=== PATIENT | female | born 1950 | race Caucasian/White ===

== ENCOUNTER 2023-06-26 16:57 | Emergency (ER) | payer OTHER ==
--- OUTSIDE RECORDS SUMMARY | 2023-06-26 17:03 | XMS REPORT | Continuity of Care Document ---
:1950 Author Organization [facility] t Address [address] [place] [address] [address] [place] [address] Care Team Providers Name Role Phone Anson Jang Attending Clinician Unavailable Nilo Lemus Attending Clinician YANDEL YUEN Attending Clinician Unavailable Yandel Yuen Attending Clinician Jarrod Delaney Attending Clinician LITA MULLIGAN Attending Clinician Unavailable Lita Mulligan Attending Clinician Randall Barth Attending Clinician @[id number] Admitting Clinician Unavailable YANDEL YUEN Admitting Clinician Unavailable Yandel Yuen Admitting Clinician Jarrod Delaney Admitting Clinician Randall Barth Admitting Clinician Problems Condition Condition Condition Status Onset Resolution Last Treating Co mments Source Name Details Category Date Date Treatment Clinician Date DR REF- DR REF- Diagnosis Active 2021-12-28 [facility] KIDNEY KIDNEY 11-26 21:44:00 l FAILURE FAILURE 00:00: Alfredo Active 11/26/2021 [facility] [place] FINESSE-BREAST FINESSE-BREAST Diagnosis Active 2020-112021-10-06 [facility] CANCER CANCER 12-03 09:10:00 l Active 00:00: Alfredo 10/03/2021 00 [facility] [place] ANOREXIA, ANOREXIA, Diagnosis Active 2017-01-23 Memoria GENERALIZE GENERALIZE 01-10 22:07:00 l D D 00:00: Alfredo WEAKNESS, WEAKNESS, 00 METASTAT METASTAT Active 01/10/2017 [facility] [place] NOT EATING NOT Diagnosis Active 2017-01-10 Memoria EATING 01-10 14:21:00 l Active 00:00: Alfredo 01/10/2017 00 [facility] [place] MALIGNANT Diagnosis Active 2015-07-09 Memoria NEOPLASM MALIGNANT 07-06 08:59:00 l BREAST/TEJ NEOPLASM 00:00: Herm marlon GE GUIDED BREAST/TEJ 00 B GE GUIDED B Active 07/06/2015 [facility] [place] 174.9 174.9 Diagnosis Active 2015-06-21 Mem oria BREAST BREAST 06-17 10:29:00 l CANCER, CANCER, 00:00: Riva FEMALE FEMALE 00 Active 06/17/2015 [facility] Altered Problem 2019-04-25 Al moria mental mental 11:07:48 l status, status, Riva unspecifie unspecifie d d 04/25/2019 [facility] 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, nervous unspecifie system, d unspecifie d 04/25/2019 [facility] 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 Herm marlon 04/25/2019 [facility] 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 Herm marlon 04/25/2019 [facility] 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 04/25/2019 [facility] Anemia due Anemia Problem 2019-04-25 Memoria to due to 11:07:48 l antineopla antineopla He rmann stic stic chemothera chemothera py py 04/25/2019 [facility] Malignant Problem Resolve 2022-01-28 M emoria tumor of Malignant d 01:12:31 l breast tumor of Alfredo (disorder) breast (disorder) Resolved Problem 01/28/2022 [facility] [place] Malignant Problem Resolve 2022-01-28 M emoria neoplasm Malignant d 01:12:31 l of bone neoplasm Alfredo (disorder) of bone (disorder) Resolved Problem 01/28/2022 [facility] [place] Hearing Hearing Problem Active 2022-01-28 M emoria loss loss 01:12:31 l (finding) (finding) Herm marlon Active Problem 01/28/2022 [facility] [place] ACUTE ACUTE Diagnosis Active 2021-12-28 Mem oria KIDNEY KIDNEY 21:44:00 l FAILURE, FAILURE, Humberto n UNSPECIFIE UNSPECIFIE D D Active [facility] [place] DEHYDRATIO DEHYDRATI Diagnosis Active 2021-12-28 Memoria N ON Active 21:44:00 l [facility] ANOREXIA ANOREXIA Diagnosis Active 2017-01-23 Memoria Active 22:07:00 l [facility] WEAKNESS WEAKNESS Diagnosis Active 2017-01-23 Memoria Active 22:07:00 l [facility] MALIGNANT MALIGNANT Diagnosis Active 2017-01-23 Memoria NEOPLASM NEOPLASM 22:07:00 l OF UNSP OF UNSP Riva SITE OF SITE OF UNSPE UNSPE Active [facility] [place] History of Past Illness Condition Condition Condition Status Onset Resolution Last Treating Co mments Source Name Details Category Date Date Treatment Clinician Date Malignant Malignant Problem 2017-2019-04-25 2019-04-25 Memoria neoplasm neoplasm 2- 11:07:48 11:07:48 l of of 05:29: Alfredo lower-oute lower-oute 01 r quadrant r quadrant of left of left female female breast breast 10/10/2018 04/25/2019 [facility] Allergies, Adverse Reactions, Alerts Allergy Allergy Status Severity Reaction(s) Onset Inactive Treating Comm ents Source Name Type Date Date Clinician ciproflo ciproflo Active Griseldaori a xacin xacin zohreh Fuentes NKFA NKFA Active Memoria l Alfredo No Known No Known Active Memori a Medicati Medicati l on on Alfredo Allergnoam Carney s s Social History Smoking Status Start Date Stop Date Source Social History 2021-10-04 18:59:56 2021-10-04 18:59:56 [facility] Medications Ordered Filled Start Stop Current Ordering Indication Dosage Frequency Signature Comments Components Source Medication Medication Date Date Medication? Clinician (SIG) Name Name Sodium No 250 mL, Memoria Chloride 12-03 Rate: To l 0.9% 14:31: prime line Alfredo (titrate) 00 and flush 250 mL remaining blood products., Dosing Weight 50.7, kg, Route: IV, Total Volume: 250, Start Date: 12/03/21 8:31:00 [employer] DEVELOPER, Duration: 1 day, Stop date: 12/04/21 8:30:00 [employer]ER DEVELOPER, Replace Every: 24 hr, 0 potassium No Notes: Memori a chloride 20 12-03 (Same as: l mEq oral 12:43: K-Dur 20) Herm marlon tablet, 00 "Do Not extended Crush" release Give with (KCL) food and full glass of water For patients unable to swallow tablet, dissolve in one half glass of water. Allow about 2 minutes for the tablets to disintegra te. Stir before giving to prepare slurry and administer . Please exclude Patient s with feeding tube less than 14 Tongan (Dobhoff, J-tube etc) and pediatric and patients. Sodium No 250 mL, Memoria Chloride 12-03 Rate: To l 0.9% 11:47: prime line Riva (titrate) 00 and flush 250 mL remaining blood products., Dosing Weight 50.7, kg, Route: IV, Total Volume: 250, Start Date: 12/03/21 5:47:00 [employer]ER DEVELOPER, Duration: 1 day, Stop date: 12/04/21 5:46:00 [employer] SERVER DEVELOPER, Replace Every: 24 hr, 0 Procrit No Notes: Memoria 12-02 (Same as: l 23:00: Retacrit) Riva epoetin tanya-epbx 72991 unit/1 ml VL. WASTE: F/P - Red; E Red MEDICATION WASTE Product Size: 35046 unit Product Wasted: ___ unit Lovenox No Notes: Memoria 12-02 (Same as: l 19:00: Lovenox) Alfredo Magnesium No Notes: Memori a Sulfate 12-02 WASTE: F/P l 15:28: - Sink; E Riva - Municipal Trash Bin Potassium No Notes: Memori a Chloride 12-01 MUST be l 14:00: Diluted Alfredo 00 before use (Same as: KCl) MEDICATION WASTE Product Size: 40 mEq Product Wasted: ___ mEq Potassium No Notes: Memori a Chloride 12-01 Infuse at l 12:00: a rate of 10 mEq/hr. (Same as: KCL) Calcium No Notes: Memoria Gluconate 12-01 WASTE: F/P l 11:46: - Sink; E - Municipal Trash Bin Potassium No 40 mEq, 2 Mem oria Chloride 11-30 tab, l 14:26: Route: PO, Drug form: ERTAB, ONCE, Dosing Weight 50.7, kg, Start date: 11/30/21 8:26:00 [employer] DEVELOPER, Stop date: 11/30/21 8:26:00 [employer] SERVER DEVELOPER, 0 Lactated No 1,000 mL, Art pro Ringers IV 11-30 Rate: 75 l 1,000 mL 14:11: ml/hr, Infuse over: 13.3 hr, Route: IV, Dosing Weight 50.7 kg, Total Volume: 1,000, Start date: 11/30/21 8:11:00 [employer]ER DEVELOPER, Duration: 30 day, Stop date: 12/30/21 8:10:00 [employer] SERVER DEVELOPER, BSA: 1.51 m2, 0 oxybutynin No Notes: Memor ia 1-25 Same as: l 19:49: Ditropan) BD Normal No Notes: Memori a Saline 1-25 (Same as: l Flush 15:01: BD Posiflush) Sodium No 25 mL, Memoria Chloride 11-29 Route: IV, l 0.9% IV 15:01: Start date: 11/29/21 9:01:00 [employer]ER DEVELOPER, Duration: 30 day, Stop date: 12/29/21 9:00:00 [employer] SERVER DEVELOPER, PRN Line Flush, 0 Calcium No Notes: Memoria Gluconate 11-29 WASTE: F/P l 14:49: - Sink; E - Municipal Trash Bin Lasix No Notes: Memoria 1-24 (Same as: l 22:42: Lasix) MEDICATION WASTE Product Size: 40 mg Product Wasted: ___ mg sodium No 1,000 mL, Memori a bicarbonate 11-28 Rate: 100 l 8.4% 100 16:58: ml/hr, Alfredo mEq + D5W 00 Infuse 1,000 mL over: 11 hr, Route: IV, Dosing Weight 50.7 kg, Total Volume: 1,100, Start date: 11/28/21 10:58:00 [employer]ER DEVELOPER, Duration: 30 day, Stop date: 12/28/21 10:57:00 [employer] SERVER DEVELOPER, BSA: 1.51 m2, 0 Thiamine No Notes: Memoria 11-28 (Same As: l 15:00: Vitamin B1) multivitami No Notes: Art pro n with 11-28 (Same l minerals 15:00: as:Thera-M Her delong 00 , Theragran- M) WASTE: F/P - Black; E - Municipal Trash Bin Give with food. Sodium No 15 mL, Memoria Chloride 11-28 Route: IV, l 0.9% IV 00:00: Start Riva 00 date: 11/27/21 18:00:00 [employer]ER DEVELOPER, Duration: 30 day, Stop date: 12/27/21 17:59:00 [employer]ER DEVELOPER, 0 Rasburicase No Notes: Art pro 11-27 Restricted l 21:38: Medication 00 : All ADULT doses of rasburicas e should be interchang ed to rasburicas e 3 mg IV x1 dose. All PEDIATRIC doses of rasburicas e should be interchang ed to 0.2 mg/kg/dose IV x1 dose (max 3 mg). A second dose may be given after 24 hours for patients unresponsi ve to 1 dose. (Same as:Elitek) MEDICATION WASTE Product Size: 1.5 mg Product Wasted: ___ mg Lasix No Notes: Memoria 11-27 (Same as: l 21:38: Lasix) MEDICATION WASTE Product Size: 40 mg Product Wasted: ___ mg Heparin 80 No Route: Memor ia unit/kg 1-23 IVP, PRN, l Bolus 17:48: 4,200 Riva (Heparin 00 unit, 4.2 Dosing mL, Drug Weight) form: INJ, PRN Heparin Protocol, Start date: 11/27/21 11:48:00 [employer]ER DEVELOPER, Stop date: 12/27/21 11:47:00 [employer] SERVER DEVELOPER, 30 day, 0 Heparin 40 No Route: Memor ia unit/kg 11-27 IVP, PRN, l Bolus 17:48: 2,100 Alfredo (Heparin 00 unit, 2.1 Dosing mL, Drug Weight) form: INJ, PRN Heparin Protocol, Start date: 11/27/21 11:48:00 [employer] SERVER DEVELOPER, Stop date: 12/27/21 11:47:00 [employer] SERVER DEVELOPER, 30 day, 0 heparin No Notes: Memoria additive - Total l 25,000 unit 17:48: Concentrat Riva [18 00 ion = 50 unit/kg/hr] unit/ ml + Premix Total Diluent volume = Sodium 500 ml Chloride Send Med 0.45% 500 Request 2 mL hours prior to next bag Calcium No Notes: Memoria Carbonate 11-27 (Same As: l 1250 MG / 15:00: Teodoro-D, Herm marlon Cholecalcif 00 OsCal-D, robby 200 Oyster UNT Oral Calcium) Tablet Ceftriaxone No Notes: Art pro 11-27 (Same As: l 14:06: Rocephin). Use with 100 mL NS and infuse over 30 min MEDICATION WASTE Product Size: 1000 mg Product Wasted: ___ mg Fluconazole No Notes: Art pro 11-27 (Same as: l 14:06: Diflucan) Hazardous Drug Group 3:Reproduc tive risk Hazardous Drug -- Refer to safe handling procedure PPE Matrix calcium-vit Yes 1 tab, PO, Memoria saba D 600 1-23 Daily, 0 l mg-125 07:48: Refill(s) Humberto n units oral 00 tablet Granisetron Yes 1 mg, up Me moria 1-23 to 1 hour l 07:46: before Riva 00 chemothera py, 0 Refill(s) eribulin Yes IV, qWeek, Mem oria 1-23 0 l 07:44: Refill(s) Zarxio Yes = 0.5 mL, Memori a 11-27 SUB-Q, l 07:41: Daily, administer ed after chemo, 0 Refill(s) pegfilgrast No SUB-Q, Art pro im 11-27 ONCE, X 7 l 07:39: day, 0 Refill(s) influenza No Notes: Memori a virus 11-27 (Same as: l vaccine, 07:37: Fluzone Humberto n inactivated 28 High-Dose high-dose Quad) For preservativ 65 years e-free of age of intramuscul older (0.7 ar ml IM) suspension Shake well before use Dextrose No 12.5 gm, Memor ia 50% Syringe 11-26 25 mL, l (D50W) 22:23: Route: IVP, Drug Form: INJ, Dosing Weight 43.182, kg, PRN, PRN Blood Glucose Results, Start date: 11/26/21 16:23:00 [employer] SERVER DEVELOPER, Duration: 30 day, Stop date: 12/26/21 16:22:00 [employer] SERVER DEVELOPER, 0 Glucagon No 1 mg, Memoria 11-26 Route: IM, l 22:23: Drug form: PDR/INJ, PRN, Dosing Weight 43.182, kg, PRN Blood Glucose Results, Start date: 11/26/21 16:23:00 [employer] SERVER DEVELOPER, Duration: 30 day, Stop date: 12/26/21 16:22:00 [employer] SERVER DEVELOPER, 0 Ondansetron No Notes: Art pro 11-26 (Same as: l 22:23: Zofran) MEDICATION WASTE Product Size: 4 mg Product Wasted: ___ mg Acetaminoph No Notes: Do Manuelito emoria en 11-26 not exceed l 22:23: 4 gm/day. (Same as: Tylenol) normal No 1,000 mL, Memori a saline 0.9% 11-26 Rate: 150 l IV 1,000 mL 20:24: ml/hr, Herm marlon 00 Infuse over: 6.7 hr, Route: IV, Dosing Weight 43.182 kg, Total Volume: 1,000, Start date: 11/26/21 14:24:00 [employer] SERVER DEVELOPER, Duration: 30 day, Stop date: 12/26/21 14:23:00 [employer] SERVER DEVELOPER, BSA: 1.4 m2, 0 Ciprofloxac No 500 mg = 1 Memoria in 500 MG 1-14 tab, PO, l Oral Tablet 19:00: Q12H, # 20 Alfredo [Cipro] 00 tab, 0 Refill(s) capecitabin 2020-11 Yes 1,000 Memor ia e 500 MG 1-30 MG/M2, PO, l Oral Tablet 19:06: BID, 0 Herm marlon 00 Refill(s) non-formula 2020-11 Yes CALCIUM, Me moria ry 1-30 PO, Daily, l 19:05: Refill(s) Alfredo 00 0 rivaroxaban 2020-11 Yes 15 mg = 1 M emoria 15 MG Oral 1-30 tab, PO, l Tablet 19:04: BID, 0 Riva [Xarelto] 00 Refill(s) Vitamin B6 2020-11 Yes PO, Daily, M emoria 1-30 0 l 19:03: Refill(s) Riva 00 Folic Acid Yes 1 mg = 1 Mem oria 1 MG Oral 3-16 tab, PO, l Tablet 19:07: Daily, # Riva 00 30 tab, 3 Refill(s) dronabinol Yes 2.5 mg = 1 M emoria 2.5 mg oral 3-16 cap, PO, l capsule 19:07: BID, X 30 Ofe nn 00 day, # 60 cap, 3 Refill(s) Lidocaine Yes 1 patch, Art pro Hydrochlori 3-16 TOP, l de 0.05 19:07: Daily, Riva MG/MG 00 Remove Transdermal after 12 Patch hours, # [Lidoderm] 30 patch, 0 Refill(s) Hydrocodone Yes 1 tab, PO, Memoria Bitartrate 3-16 Q4H, PRN l 7.5 MG / 19:07: Pain Score Her delong Ibuprofen 00 6-10, X 30 200 MG Oral day, # 90 Tablet tab, 0 [Vicoprofen Refill(s) ] remove No 1 patch, Memoria patch 3-16 Route: l 03:00: TOP, Riva 00 Bedtime, Drug form: ERFILM, Start date: 01/17/17 22:00:00 CDT, Duration: 30 day, Stop date: 02/16/17 21:00:00 CDT Protonix No Notes: Memoria 3-15 Same as: l 21:30: Protonix Riva 00 Mix in 5 mL apple juice or applesauce for oral & 10mL apple juice for NG tube Diclofenac No Notes: Memor ia Sodium 0.01 3-15 Same as: l MG/MG 18:00: Voltaren Riva Topical Gel 00 Gel Non-Formul regino Item Hydrocodone No Notes: Art pro Bitartrate 3-15 (Same as: l 7.5 MG / 15:43: Vicoprofen Her delong Ibuprofen 00 ) 200 MG Oral Tablet [Vicoprofen ] Lidocaine No Notes: Memori a Hydrochlori 3-15 Apply only l de 0.05 15:43: once for Humberto n MG/MG 00 up to 12 Transdermal hours in a Patch 24-hour [Lidoderm] period (12 hours on and 12 hours off). (Same as: Lidoderm) "Remove old patch before applicatio n of new patch" tramadol No Notes: Not Mem oria hydrochlori 3-15 to exceed l de 50 MG 03:25: 400mg/day. Her delong Oral Tablet 00 (Same As: Ultram) Magnesium No Notes: Memori a Sulfate 3-13 WASTE: F/P l 23:00: - Sink; E Alfredo - Municipal Trash Bin Potassium No Notes: Memori a Chloride 3-13 (Same as: l 1.33 MEQ/ML 22:28: Potassium H ermann Oral 00 Chloride) Solution Thiamine No Notes: Memoria 3-13 (Same As: l 22:28: Vitamin Riva 00 B1) Bisacodyl No Notes: Memori a 3-13 (Same As: l 22:22: Dulcolax, Alfredo 00 Bisco-Lax) Sodium No 500 mL, Memoria Chloride 3-12 500 ml/hr, l 0.154 07:21: Infuse Riva MEQ/ML 00 Over: 1 Injectable hr, Route: Solution IV, 500, Drug form: INJ, ONCE, Priority: STAT, Dosing Weight 54.545 kg, Start date: 01/14/17 1:21:00 [employer] SERVER DEVELOPER, Duration: 1 doses or times, Stop date: 01/14/17 1:21:00 [employer] SERVER DEVELOPER tramadol No Notes: Not Mem oria hydrochlori 3-12 to exceed l de 50 MG 04:03: 400mg/day. Her delong Oral Tablet 00 (Same As: [Ultram] Ultram) Ondansetron No Notes: Art pro 3-11 (Same as: l 19:42: Zofran) Alfredo MEDICATION WASTE Product Size: 4 mg Product Wasted: ___ mg Naloxone No Notes: Memoria 3-11 Same as l 19:42: Narcan Riva Flumazenil No Notes: Memor ia 3-11 (Same as: l 19:42: Romazicon) Alfredo Miralax No Notes: Memoria 3-11 Dissolve l 15:00: in 8 oz of Alfredo 00 water or juice. (Same as: Miralax) ketOROLAC No 4 days Memor ia 15 mg/mL 3-10 l injectable 23:17: MEDICATION H ermann solution 00 WASTE Product Size: 30 mg Product Wasted: ___ mg senna 8.6 No Notes: Memori a mg oral 3-10 (Same as: l tablet 15:00: Senokot) Alfredo Lovenox No Notes: Memoria 3-10 (Same as: l 03:00: Lovenox) Alfredo Docusate No 50 mg, 1 Memor ia Sodium 50 3-10 cap, l MG Oral 03:00: Route: PO, Herm marlon Capsule 00 Drug form: [Colace] CAP, Bedtime, Dosing Weight 54.545, kg, Start date: 01/11/17 21:00:00 [employer] SERVER DEVELOPER, Duration: 30 day, Stop date: 02/09/17 21:00:00 CDT Ofirmev 2017-0 No 650 mg, Memoria 3-10 Route: IV, l 00:00: Q6H, Alfredo 00 Dosing Weight 54.545, kg, Start date: 01/11/17 18:00:00 [employer] SERVER DEVELOPER, Duration: 30 day, Stop date: 02/10/17 12:00:00 CDT Thiamine No Notes: Memoria - (Same As: l 23:00: Vitamin Riva 00 B1) multivitami No Notes: Art pro n with 01-11 (Same l minerals 23:00: as:Thera-M Her delong 00 , Theragran- M) WASTE: F/P - Black; E - Municipal Trash Bin Give with food. Tetrahydroc No Notes: Art pro annabinol 01-11 (Same as: l 23:00: Marinol) Non-Formul regino Drug. Ofirmev No Notes: Memoria 01-11 Infuse l 22:38: over 15 minutes Do not exceed 4gm/day of acetaminop hen MEDICATION WASTE Product Size: 1000 mg Product Wasted: ___ mg Folic Acid No Notes: Memor ia 01-11 (Same as: l 22:00: Folvite) BD Normal No Notes: Memori a Saline 01-11 (Same as: l Flush 21:26: BD Riva 00 Posiflush) Sodium No 25 mL, Memoria Chloride 01-11 Route: IV, l 0.9% IV 21:26: Start Riva 00 date: 01/11/17 15:26:00 [employer] SERVER DEVELOPER, Duration: 30 day, Stop date: 02/10/17 16:25:00 CDT, PRN Line Flush Tylenol No Notes: Max Art pro 01-11 acetaminop l 04:14: hen = 4000mg/day (4 gm/day). (Same as: Tylenol) Docusate No Notes: Memoria 3 (Same as: l 20:39: Colace) (Do Not Crush) Ondansetron No Notes: Art pro - (Same as: l 20:39: Zofran) Riva 00 MEDICATION WASTE Product Size: 4 mg Product Wasted: ___ mg Calcium 2016-0 No 1,000 mL, Memor ia Chloride 3-08 1000 l 0.0014 19:43: ml/hr, Alfredo MEQ/ML / 00 Infuse Potassium Over: 1 Chloride hr, Route: 0.004 IV, 1,000, MEQ/ML / Drug form: Sodium INJ, ONCE, Chloride Priority: 0.103 STAT, MEQ/ML / Dosing Sodium Weight Lactate 54.545 kg, 0.028 Start MEQ/ML date: Injectable 01/10/17 Solution 13:43:00 [employer] SERVER DEVELOPER, Duration: 1 doses or times, Stop date: 01/10/17 13:43:00 [employer] SERVER DEVELOPER Lactated 2016-0 No 1,000 mL, Art pro Ringers -08 Rate: 40 l 1,000 mL 19:43: ml/hr, Alfredo 00 Infuse over: 25 hr, Route: IV, Dosing Weight 54.545 kg, Total Volume: 1,000, Priority: STAT, Start date: 01/10/17 13:43:00 [employer] SERVER DEVELOPER, Stop date: 02/09/17 13:42:00 CDT Saline 2016-0 No Notes: Memoria Flush 0.9% 308 (Same as: l 18:38: BD Alfredo 00 Posiflush) Vital Signs Vital Name Observation Time Observation Value Comments Source Systolic (mm Hg) 2022-01-25 13:21:00 Art rial Alfredo Diastolic (mm Hg) 2022-01-25 13:21:00 Mem orial Alfredo Height 2022-01-25 13:21:00 162.56 cm [facility] Riva Weight 2022-01-25 13:21:00 [facility] Riva BMI Calculated 2022-01-25 13:21:00 Memori al Riva Height 2022-01-25 13:11:00 162.56 cm [facility] Alfredo Weight 2022-01-25 13:11:00 [facility] Riva BMI Calculated 2022-01-25 13:11:00 Memori al Riva Height 2022-01-05 14:18:00 162.56 cm [facility] Riva Weight 2022-01-05 14:18:00 [facility] Riva BMI Calculated 2022-01-05 14:18:00 Memori al Riva Heart Rate 2021-12-04 18:40:38 [facility] Riva Respitory Rate 2021-12-04 18:40:38 Memori al Alfredo Systolic (mm Hg) 2021-12-04 18:40:15 Art rial Alfredo Diastolic (mm Hg) 2021-12-04 18:40:15 Mem orial Alfredo Heart Rate 2021-12-04 18:40:15 [facility] Riva Temperature Oral (F) 2021-12-04 18:40:14 98.1 F [facility] Alfredo Heart Rate 2021-12-04 13:44:33 [facility] Riva Temperature Oral (F) 2021-12-04 13:44:22 97.5 F [facility] Alfredo Systolic (mm Hg) 2021-12-04 13:44:21 Art rial Riva Diastolic (mm Hg) 2021-12-04 13:44:21 Mem orial Riva Respitory Rate 2021-12-04 01:45:34 Memori al Riva Systolic (mm Hg) 2021-12-04 01:45:10 Art rial Riva Diastolic (mm Hg) 2021-12-04 01:45:10 Mem orial Alrfedo Temperature Oral (F) 2021-12-04 01:45:08 98 F [facility] Riva Respitory Rate 2021-12-03 21:28:51 Memori al Riva Heart Rate 2021-11-28 10:13:45 [facility] Riva Respitory Rate 2021-11-28 10:13:45 Memori al Alfredo Systolic (mm Hg) 2021-11-28 10:13:02 Art rial Alfredo Diastolic (mm Hg) 2021-11-28 10:13:02 Mem orial Riva Heart Rate 2021-11-28 10:13:02 [facility] Riva Temperature Oral (F) 2021-11-28 10:12:56 98.3 F [facility] Alfredo Heart Rate 2021-11-28 05:42:25 [facility] Alfredo Respitory Rate 2021-11-28 05:42:25 Memori al Alfredo Systolic (mm Hg) 2021-11-28 05:41:53 Art rial Alfredo Diastolic (mm Hg) 2021-11-28 05:41:53 Mem orial Riva Temperature Oral (F) 2021-11-28 05:41:15 98.5 F [facility] Riva Respitory Rate 2021-11-28 02:06:09 Memori al Riva Systolic (mm Hg) 2021-11-28 02:05:48 Art rial Alfredo Diastolic (mm Hg) 2021-11-28 02:05:48 Mem orial Alfredo Temperature Oral (F) 2021-11-28 02:05:31 97.8 F [facility] Riva Height 2021-11-27 00:46:00 160.02 cm [facility] Riva Weight 2021-11-27 00:46:00 [facility] Alfredo BMI Calculated 2021-11-27 00:46:00 Memori al Riva Height 2021-11-26 18:21:00 162.56 cm [facility] Riva BMI Calculated 2021-11-26 18:21:00 Memori al Riva Weight 2021-11-26 18:21:00 [facility] Alfredo Respitory Rate 2021-10-06 22:30:00 Memori al Riva Systolic (mm Hg) 2021-10-06 22:30:00 Art rial Alfredo Diastolic (mm Hg) 2021-10-06 22:30:00 Mem orial Riva Respitory Rate 2021-10-06 22:00:00 Memori al Riva Systolic (mm Hg) 2021-10-06 22:00:00 Art rial Riva Diastolic (mm Hg) 2021-10-06 22:00:00 Mem orial Alfredo Respitory Rate 2021-10-06 21:45:00 Memori al Riva Systolic (mm Hg) 2021-10-06 21:45:00 Art rial Alfredo Diastolic (mm Hg) 2021-10-06 21:45:00 Mem orial Riva Height 2021-10-04 13:47:00 162.56 cm [facility] Riva Weight 2021-10-04 13:47:00 [facility] Alfredo BMI Calculated 2021-10-04 13:47:00 Memori al Riva Heart Rate 2017-01-18 20:59:00 [facility] Alfredo Respitory Rate 2017-01-18 20:59:00 Memori al Riva Temperature Oral (F) 2017-01-18 20:59:00 98.6 F [facility] Riva Systolic (mm Hg) 2017-01-18 20:59:00 Art rial Alfredo Diastolic (mm Hg) 2017-01-18 20:59:00 Mem orial Alfredo Respitory Rate 2017-01-18 17:13:00 Memori al Alfredo Systolic (mm Hg) 2017-01-18 17:13:00 Art rial Riva Diastolic (mm Hg) 2017-01-18 17:13:00 Mem orial Riva Heart Rate 2017-01-18 17:13:00 [facility] Riva Temperature Oral (F) 2017-01-18 17:13:00 98.3 F [facility] Alfredo Heart Rate 2017-01-18 13:23:00 [facility] Alfredo Temperature Oral (F) 2017-01-18 13:23:00 97.8 F [facility] Riva Systolic (mm Hg) 2017-01-18 13:23:00 Art rial Riva Diastolic (mm Hg) 2017-01-18 13:23:00 Mem orial Riva Respitory Rate 2017-01-18 13:23:00 Memori al Alfredo BMI Calculated 2017-01-10 22:49:00 Memori al Riva Weight 2017-01-10 22:49:00 [facility] Alfredo Height 2017-01-10 22:49:00 162.56 cm [facility] Riva Weight 2017-01-10 18:37:00 [facility] Alfredo Height 2015-07-06 22:01:00 162.56 cm [facility] Alfredo BMI Calculated 2015-07-06 22:01:00 Memori al Alfredo Weight 2015-07-06 22:01:00 [facility] Riva Procedures Procedure Date / Time Performing Clinician Source Performed Cystourethroscopy (separate 2022-01-25 13:35:00 [facility] procedure) Bilateral maste[facility] rmann Colonoscopy [facility] section [facility] Humberto n Biopsy of vertebral body [facility] Encounters Start End Encounter Admission Attending Care Care Encounter Source Date/Time Date/Time Type Type Clinicians Facility Department ID 2022-01-25 2022-01-26 Outpatient nullFlavo [facility] [id number] Memoria 13:00:00 04:59:59 r Urology 02 l [facility] 2022-01-25 2022-01-26 Outpatient nullFlavo [facility] [id number] Memoria 13:00:00 04:59:59 r Urology 01 l [facility] 2022-01-25 2022-01-25 Outpatient Nilo Lemus [facility] [id number] 08:00:00 23:59:59 Ad 02 2022-01-25 2022-01-25 Outpatient Nilo Lemus [facility] [id number] 08:00:00 23:59:59 Ad 2022-01-25 2022-01-25 Outpatient ANNA CASTILLO [id number] Memoria 08:00:00 08:00:00 02 [facility] 2022-01-25 2022-01-25 Outpatient ANNA CASTILLO [id number] Memoria 08:00:00 08:00:00 01 [facility] 2022-01-05 2022-01-06 Outpatient nullRadhao [facility] [id number] Memoria 14:15:00 05:59:59 r Urology 00 l [facility] 2022-01-05 2022-01-05 Outpatient Nilo Lemus [facility] [id number] 08:15:00 23:59:59 Ad 2022-01-05 2022-01-05 Outpatient ANNA NOAM [id number] [facility]oria 08:15:00 08:15:00 00 [facility] 2021-11-26 2021-12-04 Inpatient nullFlavo [facility] [id number] Memoria 17:55:06 20:39:00 r [facility]iva 03 [facility] 2021-11-26 2021-12-04 Inpatient E ALPA, [facility] [id number] Memoria 15:07:00 14:39:00 [facility]ANDEL [facility] 2021-11-26 2021-12-04 Outpatient Alpa [facility] [id number] 11:55:06 14:39:00 Yandel Landry 2021-11-26 2021-11-26 Outpatient Elaina [facility] [id number] 11:55:06 11:55:06 Jarrod Rice 2021-10-06 2021-10-06 Bedded nullFlavo [facility] [id number] Memoria 15:08:00 23:00:00 Outpatient r Riva 02 l [facility] 2021-10-06 2021-10-06 Outpatient MULLIGAN, [facility] [id number] Memoria 09:08:00 17:00:00 [facility] 2021-10-06 2021-10-06 Outpatient Mulligan, [facility] [id number] 09:08:00 17:00:00 Lita Pelon 02 2021-10-06 2021-10-06 Outpatient Mulligan, [facility] [id number] 09:08:00 17:00:00 Lita Pelon 2018-10-05 2018-10-06 Outpt Diag nullFlavo [facility] [id number] Memoria 17:10:00 05:59:00 Services r Outpatient 02 [facility] 2018-10-05 2018-10-05 Outpatient Mulligan, 2.16.840. [id number]. 3 [id number] 11:10:00 23:59:00 Lita Pelon [id number] 3.615.30 5.30 2017-01-10 2017-01-18 Inpatient [facility] [id number] Memoria 18:36:00 22:35:00 r Alfredo 67 l [facility] 2017-01-10 2017-01-18 Outpatient Kunalpara, [facility] [id number] 12:36:00 17:35:00 Randall N 67 2015-07-09 2015-07-09 Bedded [facility] [id number] Memoria 13:20:00 18:28:00 Outpatient r Alfredo 01 l [facility] 2015-07-09 2015-07-09 Outpatient Mulligan, [facility] [id number] 08:20:00 13:28:00 Lita Pelon 2015-06-28 2015-06-29 Outpt Diag nullFlavo [facility] [id number] Memoria 17:55:00 04:59:00 Services r Outpatient 01 [facility] 2015-06-28 2015-06-28 Outpatient Mulligan, 2.16.840. [id number]. [id number] 12:55:00 23:59:00 Lita Pelon [id number] 3.615.30 5.30 2015-06-25 2015-06-26 Outpt Diag Ashish [facility] [id number] Memoria 14:47:00 04:59:00 Services r Outpatient 00 l [facility] 2015-06-25 2015-06-25 Outpatient Rosy 2.16.840. [id number]. [id number] 09:47:00 23:59:00 Lita Pelon [id number] 3.615.30 5.30 2015-06-21 2015-06-22 Outpatient [facility] [id number] Memoria 15:11:00 04:59:00 r Riva 00 l [facility] 2015-06-21 2015-06-21 Outpatient Mulligan [facility] [id number] 10:11:00 23:59:00 Lita Pelon 00 Results Test Description Test Time Test Comments Results Result [facility] e Comments MRI BRAIN WO/W 2023-02-24 08:08:41 ADRI Raya MEDICAL IMAGINGName: MELLO FUENTES : 1950 Sex: M CLINI ROMERO INDICATION: C50.512 Malignant neoplasm of lower-outer quadrant of left female breast C79.51 Secondary malignant neoplasm of boneMODALITY: Progressive [employer] 3T MRITECHNIQUE: Multiplanar SE, FSE and inversion recovery pulse sequences of the brain were performed without contrast enhancement. Diffusion weighted imaging was utilized. IV contrast, 10 ml gadolinium contrast are injected IV and post-contrast T1 axial and coronal images obtained.IMPRESSION:1. Nonspecific mild to moderate generalized ventricular sulcal and cisternal dilation noted2. No evidence of metastatic diseaseFINDINGS:COMPAR ANEESH: noneThere are no significant intracranial white matter lesions.There are no acute infarcts or hemorrhages. There is no acute restriction on diffusion sequences.There are no masses in the brain or extra axial spaces. There is no hydrocephalus.Mild to moderate generalized ventricular sulcal and cisternal dilation noted. This is likely secondary to involutional changes.Sella and parasellar structures are normal. Central skull base is intact. The craniocervical junction is normal without mass or Chiari malformation.The brainstem, midbrain and cerebellum are normal. Bilateral internal auditory canals are normal and symmetric.Normal flow voids are seen intracranially in carotid and vertebrobasilar arteries. The dural venous sinuses are patent.Small amounts of nonspecific T2 hyperintensity bilateral mastoid air cells likely representing nonspecific fluid/inflammatory change.Mild mucoperiosteal thickening ethmoid and sphenoid sinuses.The calvarium is intact.Extracranial soft tissues are unremarkable.No pathologic intracranial enhancement is observed. URINE AND STOOL 2022-01-25 13:13:00 Test Item Value Reference Range Interpretation Comme nts POC UA Color (test code = POC UA Color) Yellow *NA*(01/25/22 8:13 AM ) [facility] AND [id number] 13:13:00 Test Item Value Reference Range Interpretation Comments POC UA Turbidity (test Clear *NA*(01/25/22 code = POC UA Turbidity) 8:13 AM) [facility] AND [id number] 13:13:00 Test Item Value Reference Range Interpretation Comments POC UA SG (test code = POC UA SG) 1.020 1 [facility] AND [id number] 13:13:00 Test Item Value Reference Range Interpretation Comments POC UA pH (test code = POC UA pH) 6.5 1 5.0-8.0 [facility] AND [id number] 13:13:00 Test Item Value Reference Range Interpretation Comments POC UA Prot (test code = POC Negative mg/dL UA Prot) [facility] AND [id number] 13:13:00 Test Item Value Reference Range Interpretation Comments POC UA Glu (test code = POC UA Negative mg/dL Glu) [facility] AND [id number] 13:13:00 Test Item Value Reference Range Interpretation Comments POC UA Ket (test code = POC UA Negative mg/dL Ket) [facility] AND [id number] 13:13:00 Test Item Value Reference Range Interpretation Comments POC UA Bili (test Negative *NA*(01/25/22 code = POC UA Bili) 8:13 AM) [facility] AND [id number] 13:13:00 Test Item Value Reference Range Interpretation Comments POC UA Bld (test code Negative *NA*(01/25/22 = POC UA Bld) 8:13 AM) [facility] AND [id number] 13:13:00 Test Item Value Reference Range Interpretation Comments POC UA Uro (test code = POC UA Uro) 0.2 0.1-1.0 [facility] AND [id number] 13:13:00 Test Item Value Reference Range Interpretation Comments POC UA Nit (test code Negative *NA*(01/25/22 = POC UA Nit) 8:13 AM) [facility] AND [id number] 13:13:00 Test Item Value Reference Range Interpretation Comments POC UA LeukEst (test Negative *NA*(01/25/22 code = POC UA LeukEst) 8:13 AM) [facility] LAB [id number] 18:01:00 Test Item Value Reference Range Interpretation Comments Result 2 (Urine Culture) See Result Comment (test code = Result 2 (Urine Culture)) [facility] [id number] 13:01:00 Test Item Value Reference Range Interpretation Comments Magnesium Lvl (test code = Magnesium 1.6 1.8-2.4 Lvl) [facility]2022-01-30 13:01:00 Test Item Value Reference Range Interpretation Comments Glucose Lvl (test code = Glucose Lvl) 74 70-[address] [facility]2022-01-30 13:01:00 Test Item Value Reference Range Interpretation Comments BUN (test code = BUN) 21 - [facility]2022-01-30 13:01:00 Test Item Value Reference Range Interpretation Comments Creatinine Lvl (test code = Creatinine 3.19 0.50-1.40 Lvl) [facility]2022-01-30 13:01:00 Test Item Value Reference Range Interpretation Comments Sodium Lvl (test code = Sodium Lvl) 145 135-145 [place] 072972-01-30 13:01:00 Test Item Value Reference Range Interpretation Comments Potassium Lvl (test code = Potassium 3.3 3.5-5.1 Lvl) [place] 072972-01-30 13:01:00 Test Item Value Reference Range Interpretation Comments Chloride Lvl (test code = Chloride Lvl) 108 95-109 [place] 072972-01-30 13:01:00 Test Item Value Reference Range Interpretation Comments CO2 (test code = CO2) 26 24-32 [place] 072972-01-30 13:01:00 Test Item Value Reference Range Interpretation Comments Calcium Lvl (test code = Calcium Lvl) 7.5 8.5-10.5 [place] 072972-01-30 13:01:00 Test Item Value Reference Range Interpretation Comments AGAP (test code = AGAP) 14.3 10.0-20.[address] [facility]2022-01-30 13:01:00 Test Item Value Reference Range Interpretation Comments eGFR (test code = eGFR) 14 [id number] 13:01:00 Test Item Value Reference Range Interpretation Comments WBC (test code = WBC) 12.1 3.7-10.4 [id number] 13:01:00 Test Item Value Reference Range Interpretation Comments RBC (test code = RBC) 3.23 4.20-5.40 [id number] 13:01:00 Test Item Value Reference Range Interpretation Comments Hgb (test code = Hgb) 9.7 12.0-16.0 [place] 885142-01-30 13:01:00 Test Item Value Reference Range Interpretation Comments Hct (test code = Hct) 29.0 36.0-48.0 [place] 885142-01-30 13:01:00 Test Item Value Reference Range Interpretation Comments MCV (test code = MCV) 89.7 80.0-98.0 [place] 885142-01-30 13:01:00 Test Item Value Reference Range Interpretation Comments MCH (test code = MCH) 30.1 pg 27.0-31.0 [place] 885142-01-30 13:01:00 Test Item Value Reference Range Interpretation Comments MCHC (test code = MCHC) 33.5 32.0-36.0 [place] 885142-01-30 13:01:00 Test Item Value Reference Range Interpretation Comments RDW (test code = RDW) 18.9 11.5-14.5 [place] 885142-01-30 13:01:00 Test Item Value Reference Range Interpretation Comments Platelet (test code = Platelet) 162 133-450 [place] 885142-01-30 13:01:00 Test Item Value Reference Range Interpretation Comments MPV (test code = MPV) 7.9 7.4-10.4 [place] 60[address]-01-30 13:01:00 Test Item Value Reference Range Interpretation Comments Segs (test code = Segs) 86.3 45.0-75.0 [place] 885142-01-30 13:01:00 Test Item Value Reference Range Interpretation Comments Lymphocytes (test code = Lymphocytes) 5.4 20.0-40.0 [place] 885142-01-30 13:01:00 Test Item Value Reference Range Interpretation Comments Monocytes (test code = Monocytes) 8.2 2.0-12.0 [place] 60[address]-01-30 13:01:00 Test Item Value Reference Range Interpretation Comments Eosinophils (test code = 0.1 See_Comment [A utomated message] The Eosinophils) system which ge nerated this result tra nsmitted reference range : <=4.0. The reference r moon was not used to int erpret this result as normal/abnormal . [id number] 13:01:00 Test Item Value Reference Range Interpretation Comments Neutrophils # (test code = Neutrophils 10.5 1.5-8.1 #) [place] 885142-01-30 13:01:00 Test Item Value Reference Range Interpretation Comments Lymphocytes # (test code = Lymphocytes 0.7 1.0-5.5 #) [place] 885142-01-30 13:01:00 Test Item Value Reference Range Interpretation Comments Monocytes # (test code 1.0 See_Comment [Aut omated message] The = Monocytes #) system which generated this result tra nsmitted reference range : <=0.8. The reference r moon was not used to int erpret this result as normal/abnormal . [facility] [id number] 14:31:00 Test Item Value Reference Range Interpretation Comments RBC product (test code Product available = RBC product) (12/03/21 8:31 AM) [facility] [id number] 12:13:00 Test Item Value Reference Range Interpretation Comments RBC product (test code Product available = RBC product) (12/03/21 6:13 AM) [facility] [id number] 12:12:00 Test Item Value Reference Range Interpretation Comments ABO/Rh (test code = ABO/Rh) O POS [facility] [id number] 12:12:00 Test Item Value Reference Range Interpretation Comments Antibody Scrn (test Positive 4(12/03/21 code = Antibody Scrn) 6:12 AM) [facility] [id number] 12:12:00 Test Item Value Reference Range Interpretation Comments Antigen FABIENNE Int (test code = Fy(b) pos Antigen FABIENNE Int) [facility] [id number] 12:12:00 Test Item Value Reference Range Interpretation Comments Antigen AHG Int (test code = Fy(a) neg Antigen AHG Int) [facility] [id number] 12:12:00 Test Item Value Reference Range Interpretation Comments AB Int (test code = AB Int) Anti-Fy(a) [facility] [id number] 11:47:00 Test Item Value Reference Range Interpretation Comments RBC product (test code Product available = RBC product) (12/03/21 5:47 AM) [id number] 11:07:00 Test Item Value Reference Range Interpretation Comments Glucose Lvl (test code = Glucose Lvl) 82 70-99 [facility] [id number] 11:07:00 Test Item Value Reference Range Interpretation Comments BUN (test code = BUN) 31 7-22 [facility] [id number] 11:07:00 Test Item Value Reference Range Interpretation Comments Creatinine Lvl (test code = Creatinine 4.85 0.50-1.40 Lvl) [place] 072972-01-29 11:07:00 Test Item Value Reference Range Interpretation Comments Sodium Lvl (test code = Sodium Lvl) 141 135-145 [place] 072972-01-29 11:07:00 Test Item Value Reference Range Interpretation Comments Potassium Lvl (test code = Potassium 3.0 3.5-5.1 Lvl) [place] 072972-01-29 11:07:00 Test Item Value Reference Range Interpretation Comments Chloride Lvl (test code = Chloride Lvl) 104 95-109 [place] 072972-01-29 11:07:00 Test Item Value Reference Range Interpretation Comments CO2 (test code = CO2) 26 24-32 [place] 072972-01-29 11:07:00 Test Item Value Reference Range Interpretation Comments AGAP (test code = AGAP) 14.0 10.0-20.0 [place] 072972-01-29 11:07:00 Test Item Value Reference Range Interpretation Comments Calcium Lvl (test code = Calcium Lvl) 7.7 8.5-10.5 [place] 072972-01-29 11:07:00 Test Item Value Reference Range Interpretation Comments B/C Ratio (test code = B/C Ratio) 6 1 6-25 [place] 072972-01-29 11:07:00 Test Item Value Reference Range Interpretation Comments Total Protein (test code = Total 4.2 6.4-8.4 Protein) [place] 072972-01-29 11:07:00 Test Item Value Reference Range Interpretation Comments Albumin Lvl (test code = Albumin Lvl) 1.8 3.5-5.0 [place] 072972-01-29 11:07:00 Test Item Value Reference Range Interpretation Comments Globulin (test code = Globulin) 2.4 2.7-4.2 [place] 072972-01-29 11:07:00 Test Item Value Reference Range Interpretation Comments A/G Ratio (test code = A/G Ratio) 0.8 1 0.7-1.6 [place] 072972-01-29 11:07:00 Test Item Value Reference Range Interpretation Comments ALT (test code = ALT) no gt See_Comment [Auto mated message] The system which ge nerated this result transmit carrie reference range : <=65. The reference range was not used to interpr et this result as michelet l/abnormal. [place] 072972-01-29 11:07:00 Test Item Value Reference Range Interpretation Comments AST (test code = AST) 22 See_Comment [Auto mated message] The system which ge nerated this result transmit carrie reference range : <=37. The reference range was not used to interpr et this result as michelet l/abnormal. [place] 072972-01-29 11:07:00 Test Item Value Reference Range Interpretation Comments Alk Phos (test code = Alk Phos) 71 39-136 [place] 072972-01-29 11:07:00 Test Item Value Reference Range Interpretation Comments Bili Total (test code = Bili Total) 0.4 0.2-1.3 [place] 072972-01-29 11:07:00 Test Item Value Reference Range Interpretation Comments eGFR (test code = eGFR) [address] [facility]2022-01-29 11:07:00 Test Item Value Reference Range Interpretation Comments Magnesium Lvl (test code = Magnesium 2.9 1.8-2.4 Lvl) [place] 885142-01-29 11:07:00 Test Item Value Reference Range Interpretation Comments WBC (test code = WBC) 10.7 3.7-10.4 [place] 885142-01-29 11:07:00 Test Item Value Reference Range Interpretation Comments RBC (test code = RBC) 2.10 4.20-5.40 [place] 885142-01-29 11:07:00 Test Item Value Reference Range Interpretation Comments Hgb (test code = Hgb) 6.7 12.0-16.0 [place] [address]872-01-29 11:07:00 Test Item Value Reference Range Interpretation Comments Hct (test code = Hct) 19.7 36.0-48.0 [place] 885142-01-29 11:07:00 Test Item Value Reference Range Interpretation Comments MCV (test code = MCV) 93.8 80.0-98.0 [place] 885142-01-29 11:07:00 Test Item Value Reference Range Interpretation Comments MCH (test code = MCH) 32.0 pg 27.0-31.0 [place] 885142-01-29 11:07:00 Test Item Value Reference Range Interpretation Comments MCHC (test code = MCHC) 34.1 32.0-36.0 [place] 885142-01-29 11:07:00 Test Item Value Reference Range Interpretation Comments RDW (test code = RDW) 20.3 11.5-14.5 [place] 885142-01-29 11:07:00 Test Item Value Reference Range Interpretation Comments Platelet (test code = Platelet) 193 133-450 [id number] 11:07:00 Test Item Value Reference Range Interpretation Comments MPV (test code = MPV) 8.0 7.4-10.4 [place] 885142-01-29 11:07:00 Test Item Value Reference Range Interpretation Comments Neutrophils # (test code = Neutrophils 8.5 1.5-8.1 #) [place] 885142-01-29 11:07:00 Test Item Value Reference Range Interpretation Comments Lymphocytes # (test code = Lymphocytes 1.1 1.0-5.5 #) [id number] 11:07:00 Test Item Value Reference Range Interpretation Comments Monocytes # (test code 0.5 See_Comment [Aut omated message] The = Monocytes #) system which generated this result tra nsmitted reference range : <=0.8. The reference r moon was not used to int erpret this result as normal/abnormal . [id number] 11:07:00 Test Item Value Reference Range Interpretation Comments Basophils # (test code 0.3 See_Comment [Aut omated message] The = Basophils #) system which generated this result tra nsmitted reference range : <=0.2. The reference r moon was not used to int erpret this result as normal/abnormal . [place] 885142-01-29 11:07:00 Test Item Value Reference Range Interpretation Comments Segs (test code = Segs) 72.0 45.0-75.0 [place] 885142-01-29 11:07:00 Test Item Value Reference Range Interpretation Comments Bands (test code = 7.0 See_Comment [Automat ed message] The Bands) system which ge nerated this result transmit carrie reference range : <=11.0. The reference r moon was not used to interpr et this result as michelet l/abnormal. [place] 885142-01-29 11:07:00 Test Item Value Reference Range Interpretation Comments Lymphocytes (test code = Lymphocytes) 10.0 20.0-40.0 [place] 885142-01-29 11:07:00 Test Item Value Reference Range Interpretation Comments Monocytes (test code = Monocytes) 5.0 2.0-12.0 [place] 885142-01-29 11:07:00 Test Item Value Reference Range Interpretation Comments Basophils (test code = 3.0 See_Comment [Aut omated message] The Basophils) system which ge nerated this result tra nsmitted reference range : <=1.0. The reference r moon was not used to int erpret this result as normal/abnormal . [place] 885142-01-29 11:07:00 Test Item Value Reference Range Interpretation Comments Metamyelocytes (test code 2.0 See_Comment [ Automated message] = Metamyelocytes) The system which generated this result transmitted ref erence range: <=1.0. T he reference range was not used to int erpret this result as normal/abnormal . [id number] 11:07:00 Test Item Value Reference Range Interpretation Comments Myelocytes (test code = Myelocytes) 1.0 [place] 885142-01-29 11:07:00 Test Item Value Reference Range Interpretation Comments Atypical Lymphs (test code = Atypical 0.0 Lymphs) [place] [address]-01-29 11:07:00 Test Item Value Reference Range Interpretation Comments RBC Morph (test code = Normal (12/03/21 5:07 RBC Morph) AM) [place] [address]-01-29 11:07:00 Test Item Value Reference Range Interpretation Comments Plt Morph (test code = Normal (12/03/21 5:07 Plt Morph) AM) [facility]2022-01-28 10:56:00 Test Item Value Reference Range Interpretation Comments Glucose Lvl (test code = Glucose Lvl) 85 70-99 [place] 072972-01-28 10:56:00 Test Item Value Reference Range Interpretation Comments BUN (test code = BUN) 39 7-22 [place] 072972-01-28 10:56:00 Test Item Value Reference Range Interpretation Comments Creatinine Lvl (test code = Creatinine 7.40 0.50-1.40 Lvl) [place] 072972-01-28 10:56:00 Test Item Value Reference Range Interpretation Comments Sodium Lvl (test code = Sodium Lvl) 142 135-145 [place] 072972-01-28 10:56:00 Test Item Value Reference Range Interpretation Comments Potassium Lvl (test code = Potassium 3.5 3.5-5.1 Lvl) [place] 072972-01-28 10:56:00 Test Item Value Reference Range Interpretation Comments Chloride Lvl (test code = Chloride Lvl) 105 95-109 [place] 072972-01-28 10:56:00 Test Item Value Reference Range Interpretation Comments CO2 (test code = CO2) 28 24-32 [place] 072972-01-28 10:56:00 Test Item Value Reference Range Interpretation Comments AGAP (test code = AGAP) 12.5 10.0-20.0 [place] 072972-01-28 10:56:00 Test Item Value Reference Range Interpretation Comments Calcium Lvl (test code = Calcium Lvl) 6.8 8.5-10.5 [place] 072972-01-28 10:56:00 Test Item Value Reference Range Interpretation Comments B/C Ratio (test code = B/C Ratio) 5 1 6-25 [place] 072972-01-28 10:56:00 Test Item Value Reference Range Interpretation Comments Albumin Lvl (test code = Albumin Lvl) 1.7 3.5-5.0 [place] 072972-01-28 10:56:00 Test Item Value Reference Range Interpretation Comments ALT (test code = ALT) 9 See_Comment [Auto mated message] The system which ge nerated this result transmit carrie reference range : <=65. The reference range was not used to interpr et this result as michelet l/abnormal. [place] 072972-01-28 10:56:00 Test Item Value Reference Range Interpretation Comments AST (test code = AST) 26 See_Comment [Auto mated message] The system which ge nerated this result transmit carrie reference range : <=37. The reference range was not used to interpr et this result as michelet l/abnormal. [place] 072972-01-28 10:56:00 Test Item Value Reference Range Interpretation Comments eGFR (test code = eGFR) 5 [place] 072972-01-28 10:56:00 Test Item Value Reference Range Interpretation Comments Total Protein (test code = Total 4.1 6.4-8.4 Protein) [place] 072972-01-28 10:56:00 Test Item Value Reference Range Interpretation Comments Alk Phos (test code = Alk Phos) 73 39-136 [place] 072972-01-28 10:56:00 Test Item Value Reference Range Interpretation Comments Bili Total (test code = Bili Total) 0.4 0.2-1.3 [place] 072972-01-28 10:56:00 Test Item Value Reference Range Interpretation Comments Globulin (test code = Globulin) 2.4 2.7-4.2 [place] 072972-01-28 10:56:00 Test Item Value Reference Range Interpretation Comments A/G Ratio (test code = A/G Ratio) 0.7 1 0.7-1.6 [place] 072972-01-28 10:56:00 Test Item Value Reference Range Interpretation Comments Magnesium Lvl (test code = Magnesium 1.4 1.8-2.4 Lvl) [place] 885142-01-28 10:56:00 Test Item Value Reference Range Interpretation Comments PTT (test code = PTT) 68.4 s 22.9-35.8 [place] 885142-01-28 10:56:00 Test Item Value Reference Range Interpretation Comments Neutrophils # (test code = Neutrophils 12.5 1.5-8.1 #) [place] 885142-01-28 10:56:00 Test Item Value Reference Range Interpretation Comments Lymphocytes # (test code = Lymphocytes 0.5 1.0-5.5 #) [place] 885142-01-28 10:56:00 Test Item Value Reference Range Interpretation Comments Monocytes # (test code 0.5 See_Comment [Aut omated message] The = Monocytes #) system which generated this result tra nsmitted reference range : <=0.8. The reference r moon was not used to int erpret this result as normal/abnormal . [facility] 10:56:00 Test Item Value Reference Range Interpretation Comments Segs (test code = Segs) 79.0 45.0-75.0 [place] 885142-01-28 10:56:00 Test Item Value Reference Range Interpretation Comments Bands (test code = 12.0 See_Comment [Automat ed message] The Bands) system which ge nerated this result transmit carrie reference range : <=11.0. The reference r moon was not used to interpr et this result as michelet l/abnormal. [place] 885142-01-28 10:56:00 Test Item Value Reference Range Interpretation Comments Lymphocytes (test code = Lymphocytes) 4.0 20.0-40.0 [place] 885142-01-28 10:56:00 Test Item Value Reference Range Interpretation Comments Monocytes (test code = Monocytes) 4.0 2.0-12.0 [place] 885142-01-28 10:56:00 Test Item Value Reference Range Interpretation Comments Myelocytes (test code = Myelocytes) 1.0 [place] 885142-01-28 10:56:00 Test Item Value Reference Range Interpretation Comments Atypical Lymphs (test code = Atypical 0.0 Lymphs) [place] 885142-01-28 10:56:00 Test Item Value Reference Range Interpretation Comments RBC Morph (test code = Normal (12/02/21 4:56 RBC Morph) AM) [facility]kbbbgxEMAHWJNSKM1735-30-48 10:56:00 Test Item Value Reference Range Interpretation Comments Plt Morph (test code = Normal (12/02/21 4:56 Plt Morph) AM) [facility]andEelyqdaUOJBPYGIZG5782-18-44 10:56:00 Test Item Value Reference Range Interpretation Comments WBC (test code = WBC) 13.7 3.7-10.4 [place] 885142-01-28 10:56:00 Test Item Value Reference Range Interpretation Comments RBC (test code = RBC) 2.37 4.20-5.40 [place] 885142-01-28 10:56:00 Test Item Value Reference Range Interpretation Comments Hgb (test code = Hgb) 7.5 12.0-16.0 [place] [address]-01-28 10:56:00 Test Item Value Reference Range Interpretation Comments Hct (test code = Hct) 22.0 36.0-48.0 [place] 885142-01-28 10:56:00 Test Item Value Reference Range Interpretation Comments MCV (test code = MCV) 93.1 80.0-98.0 [place] 885142-01-28 10:56:00 Test Item Value Reference Range Interpretation Comments MCH (test code = MCH) 31.5 pg 27.0-31.0 [place] 885142-01-28 10:56:00 Test Item Value Reference Range Interpretation Comments MCHC (test code = MCHC) 33.8 32.0-36.0 [place] 885142-01-28 10:56:00 Test Item Value Reference Range Interpretation Comments RDW (test code = RDW) 20.1 11.5-14.5 [place] 885142-01-28 10:56:00 Test Item Value Reference Range Interpretation Comments Platelet (test code = Platelet) 155 133-450 [facility]andPwealcyAHGKPVHBVJ6145-36-44 10:56:00 Test Item Value Reference Range Interpretation Comments MPV (test code = MPV) 7.2 7.4-10.4 [place] [address]-01-28 02:28:00 Test Item Value Reference Range Interpretation Comments PTT (test code = PTT) 78.3 s 22.9-35.8 [place] 885142-01-27 18:49:00 Test Item Value Reference Range Interpretation Comments PTT (test code = PTT) 113.1 s 22.9-35.[address] [facility]2022-01-27 09:46:00 Test Item Value Reference Range Interpretation Comments Total Protein (test code = Total 3.9 6.4-8.4 Protein) [place] 072972-01-27 09:46:00 Test Item Value Reference Range Interpretation Comments Alk Phos (test code = Alk Phos) 86 39-136 [place] 072972-01-27 09:46:00 Test Item Value Reference Range Interpretation Comments Bili Total (test code = Bili Total) 0.4 0.2-1.3 [place] 072972-01-27 09:46:00 Test Item Value Reference Range Interpretation Comments B/C Ratio (test code = B/C Ratio) 5 1 6-25 [place] [address]-01-27 09:46:00 Test Item Value Reference Range Interpretation Comments Albumin Lvl (test code = Albumin Lvl) 1.7 3.5-5.0 [address]01-27 09:46:00 Test Item Value Reference Range Interpretation Comments Globulin (test code = Globulin) 2.2 2.7-4.2 [place] [address]-01-27 09:46:00 Test Item Value Reference Range Interpretation Comments A/G Ratio (test code = A/G Ratio) 0.8 1 0.7-1.6 [place] [address]-01-27 09:46:00 Test Item Value Reference Range Interpretation Comments ALT (test code = ALT) 7 See_Comment [Auto mated message] The system which ge nerated this result transmit carrie reference range : <=65. The reference range was not used to interpr et this result as michelet l/abnormal. [place] 7[address]-01-27 09:46:00 Test Item Value Reference Range Interpretation Comments AST (test code = AST) 31 See_Comment [Auto mated message] The system which ge nerated this result transmit carrie reference range : <=37. The reference range was not used to interpr et this result as michelet l/abnormal. [place] [address]-01-27 09:46:00 Test Item Value Reference Range Interpretation Comments PT (test code = PT) 16.0 s 12.0-14.7 [place] [address]-01-27 09:46:00 Test Item Value Reference Range Interpretation Comments INR (test code = INR) 1.29 1 0.85-1.17 [place] [address]-01-27 09:46:00 Test Item Value Reference Range Interpretation Comments Basophils (test code = 0.6 See_Comment [Aut omated message] The Basophils) system which ge nerated this result tra nsmitted reference range : <=1.0. The reference r moon was not used to int erpret this result as normal/abnormal . [place] [address]-01-27 09:46:00 Test Item Value Reference Range Interpretation Comments Basophils # (test code 0.1 See_Comment [Aut omated message] The = Basophils #) system which generated this result tra nsmitted reference range : <=0.2. The reference r moon was not used to int erpret this result as normal/abnormal . [facility]andQgcqvhhRXGZQDROOX6524-09-64 23:16:00 Test Item Value Reference Range Interpretation Comments PT (test code = PT) 17.0 s 12.0-14.7 [place] 885142-01-26 23:16:00 Test Item Value Reference Range Interpretation Comments INR (test code = INR) 1.40 1 0.85-1.17 [place] [address]-01-26 13:30:00 Test Item Value Reference Range Interpretation Comments PT (test code = PT) 18.8 s 12.0-14.7 [place] 885142-01-26 13:30:00 Test Item Value Reference Range Interpretation Comments INR (test code = INR) 1.59 1 0.85-1.[address] [facility]2022-01-26 11:54:00 Test Item Value Reference Range Interpretation Comments Uric Acid (test code = Uric Acid) 1.0 2.5-7.0 [place] 885142-01-26 11:54:00 Test Item Value Reference Range Interpretation Comments Bands (test code = 13.0 See_Comment [Automat ed message] The Bands) system which ge nerated this result transmit carrie reference range : <=11.0. The reference r moon was not used to interpr et this result as michelet l/abnormal. [place] 885142-01-26 11:54:00 Test Item Value Reference Range Interpretation Comments Metamyelocytes (test code 3.0 See_Comment [ Automated message] = Metamyelocytes) The system which generated this result transmitted ref erence range: <=1.0. T he reference range was not used to int erpret this result as normal/abnormal . [place] 885142-01-26 11:54:00 Test Item Value Reference Range Interpretation Comments Atypical Lymphs (test code = Atypical 0.0 Lymphs) [place] 885142-01-26 11:54:00 Test Item Value Reference Range Interpretation Comments Plt Morph (test code = Normal (11/30/21 5:54 Plt Morph) AM) [facility]MdfnwyiIUWLVUOGZY6806-79-93 11:54:00 Test Item Value Reference Range Interpretation Comments Anisocyte (test code = 1+ *ABN*(11/30/21 Anisocyte) 5:54 AM) [facility]2022-01-25 13:11:00 Test Item Value Reference Range Interpretation Comments Uric Acid (test code = Uric Acid) 1.9 2.5-7.[address] [facility]2022-01-25 13:11:00 Test Item Value Reference Range Interpretation Comments Phosphorus (test code = Phosphorus) 4.3 2.5-4.5 [facility]andVwkqlydHIWHHCLSHA3878-85-67 13:11:00 Test Item Value Reference Range Interpretation Comments Metamyelocytes (test code 3.0 See_Comment [ Automated message] = Metamyelocytes) The system which generated this result transmitted ref erence range: <=1.0. T he reference range was not used to int erpret this result as normal/abnormal . [facility]andUfrgmteQJPPTNLYJG6554-78-46 13:11:00 Test Item Value Reference Range Interpretation Comments Myelocytes (test code = Myelocytes) 3.0 [facility]andOfgiksxBLYLTNGYOC0018-59-97 13:11:00 Test Item Value Reference Range Interpretation Comments RBC Morph (test code = Normal (11/29/21 7:11 RBC Morph) AM) [facility]2022-01-24 10:22:00 Test Item Value Reference Range Interpretation Comments Uric Acid (test code = Uric Acid) 8.3 2.5-7.[address] [facility]2022-01-24 10:22:00 Test Item Value Reference Range Interpretation Comments Phosphorus (test code = Phosphorus) 3.8 2.5-4.5 [place] 885142-01-24 10:22:00 Test Item Value Reference Range Interpretation Comments NRBC (test code = NRBC) 1 [facility]andHrsortuYTHBAEAXZD9166-33-79 10:22:00 Test Item Value Reference Range Interpretation Comments Tot Cell Ct (test code = Tot Cell Ct) 100 1 [facility]yywssTAYYGVJITJ6481-08-96 10:22:00 Test Item Value Reference Range Interpretation Comments C-REACTIVE PROTEIN (test code = 24.0 C-REACTIVE PROTEIN) [facility]2022-01-24 03:43:00 Test Item Value Reference Range Interpretation Comments LDH (test code = LDH) 452 98-192 [facility]andDiklfpiFSAIAHRQZE3857-74-96 03:43:00 Test Item Value Reference Range Interpretation Comments PTT (test code = PTT) 100.8 s 22.9-35.8 [facility]2022-01-24 03:43:00 Test Item Value Reference Range Interpretation Comments Ca Ion WB (test code = Ca Ion WB) 0.95 1.05-1.25 [facility]2022-01-24 03:43:00 Test Item Value Reference Range Interpretation Comments Ca Norm WB (test code = Ca Norm WB) 0.92 1.05-1.25 [place] 885142-01-23 19:32:00 Test Item Value Reference Range Interpretation Comments Segs (test code = Segs) 92.9 45.0-75.0 [place] 885142-01-23 19:32:00 Test Item Value Reference Range Interpretation Comments Lymphocytes (test code = Lymphocytes) 3.2 20.0-40.0 [place] 885142-01-23 19:32:00 Test Item Value Reference Range Interpretation Comments Monocytes (test code = Monocytes) 3.6 2.0-12.0 [place] 885142-01-23 19:32:00 Test Item Value Reference Range Interpretation Comments Eosinophils (test code = 0.1 See_Comment [A utomated message] The Eosinophils) system which ge nerated this result tra nsmitted reference range : <=4.0. The reference r moon was not used to int erpret this result as normal/abnormal . [place] 885142-01-23 19:32:00 Test Item Value Reference Range Interpretation Comments Basophils (test code = 0.2 See_Comment [Aut omated message] The Basophils) system which ge nerated this result tra nsmitted reference range : <=1.0. The reference r moon was not used to int erpret this result as normal/abnormal . [place] 885142-01-23 19:32:00 Test Item Value Reference Range Interpretation Comments Neutrophils # (test code = Neutrophils 29.8 1.5-8.1 #) [place] 885142-01-23 19:32:00 Test Item Value Reference Range Interpretation Comments Lymphocytes # (test code = Lymphocytes 1.0 1.0-5.5 #) [place] 885142-01-23 19:32:00 Test Item Value Reference Range Interpretation Comments Monocytes # (test code 1.1 See_Comment [Aut omated message] The = Monocytes #) system which generated this result tra nsmitted reference range : <=0.8. The reference r moon was not used to int erpret this result as normal/abnormal . [place] 885142-01-23 19:32:00 Test Item Value Reference Range Interpretation Comments Basophils # (test code 0.1 See_Comment [Aut omated message] The = Basophils #) system which generated this result tra nsmitted reference range : <=0.2. The reference r moon was not used to int erpret this result as normal/abnormal . [place] [address]-01-23 19:32:00 Test Item Value Reference Range Interpretation Comments PTT (test code = PTT) 29.5 s 22.9-35.8 [place] 885142-01-23 19:32:00 Test Item Value Reference Range Interpretation Comments PT (test code = PT) 16.7 s 12.0-14.7 [place] 885142-01-23 19:32:00 Test Item Value Reference Range Interpretation Comments INR (test code = INR) 1.36 1 0.85-1.17 [place] [address]-01-23 19:32:00 Test Item Value Reference Range Interpretation Comments WBC (test code = WBC) 32.1 3.7-10.4 [place] [address]-01-23 19:32:00 Test Item Value Reference Range Interpretation Comments RBC (test code = RBC) 3.03 4.20-5.40 [place] [address]-01-23 19:32:00 Test Item Value Reference Range Interpretation Comments Hgb (test code = Hgb) 9.6 12.0-16.0 [place] [address]-01-23 19:32:00 Test Item Value Reference Range Interpretation Comments Hct (test code = Hct) 28.3 36.0-48.0 [place] 885142-01-23 19:32:00 Test Item Value Reference Range Interpretation Comments MCV (test code = MCV) 93.4 80.0-98.0 [facility] HospitalYugpktmQIIKYGUAQJ3781-15-54 19:32:00 Test Item Value Reference Range Interpretation Comments MCH (test code = MCH) 31.7 pg 27.0-31.0 [facility] HospitalHbxlowuTUJHYZVXDQ4602-10-63 19:32:00 Test Item Value Reference Range Interpretation Comments MCHC (test code = MCHC) 34.0 32.0-36.0 [facility]andNvfrsmnHLHXZVDOJB3461-72-30 19:32:00 Test Item Value Reference Range Interpretation Comments RDW (test code = RDW) 19.8 11.5-14.5 [facility] HospitalHsuxsggUVSNJFTLRM7245-13-49 19:32:00 Test Item Value Reference Range Interpretation Comments Platelet (test code = Platelet) 162 133-450 [facility]andStzxzbzNIXHMDAKYG6301-15-34 19:32:00 Test Item Value Reference Range Interpretation Comments MPV (test code = MPV) 7.2 7.4-10.4 [facility]ITALCQRZJYP0560-76-98 11:41:00 Test Item Value Reference Range Interpretation Comments Total CK (test code = Total CK) 70 12-[address] [facility]2022-01-23 11:41:00 Test Item Value Reference Range Interpretation Comments Glucose Lvl (test code = Glucose Lvl) 88 70-[address] [facility]2022-01-23 11:41:00 Test Item Value Reference Range Interpretation Comments BUN (test code = BUN) 47 7-[address] [facility]2022-01-23 11:41:00 Test Item Value Reference Range Interpretation Comments Creatinine Lvl (test code = Creatinine 10.60 0.50-1.40 Lvl) [facility]2022-01-23 11:41:00 Test Item Value Reference Range Interpretation Comments Sodium Lvl (test code = Sodium Lvl) 133 135-[address] [facility]2022-01-23 11:41:00 Test Item Value Reference Range Interpretation Comments Potassium Lvl (test code = Potassium 3.7 3.5-5.1 Lvl) [facility]2022-01-23 11:41:00 Test Item Value Reference Range Interpretation Comments Chloride Lvl (test code = Chloride Lvl) 100 95-[address] [facility]2022-01-23 11:41:00 Test Item Value Reference Range Interpretation Comments CO2 (test code = CO2) 20 24-32 [place] 072972-01-23 11:41:00 Test Item Value Reference Range Interpretation Comments AGAP (test code = AGAP) 16.7 10.0-20.0 [place] 072972-01-23 11:41:00 Test Item Value Reference Range Interpretation Comments Calcium Lvl (test code = Calcium Lvl) 6.8 8.5-10.5 [place] 072972-01-23 11:41:00 Test Item Value Reference Range Interpretation Comments Albumin Lvl (test code = Albumin Lvl) 2.0 3.5-5.0 [place] 072972-01-23 11:41:00 Test Item Value Reference Range Interpretation Comments Phosphorus (test code = Phosphorus) 3.3 2.5-4.5 [place] 072972-01-23 11:41:00 Test Item Value Reference Range Interpretation Comments eGFR (test code = eGFR) 3 [place] 072972-01-23 11:41:00 Test Item Value Reference Range Interpretation Comments Uric Acid (test code = Uric Acid) 17.1 2.5-7.0 [place] 885142-01-23 11:41:00 Test Item Value Reference Range Interpretation Comments Neutrophils # (test code = Neutrophils 30.7 1.5-8.1 #) [place] 885142-01-23 11:41:00 Test Item Value Reference Range Interpretation Comments Lymphocytes # (test code = Lymphocytes 1.0 1.0-5.5 #) [place] 885142-01-23 11:41:00 Test Item Value Reference Range Interpretation Comments Monocytes # (test code 1.3 See_Comment [Aut omated message] The = Monocytes #) system which generated this result tra nsmitted reference range : <=0.8. The reference r moon was not used to int erpret this result as normal/abnormal . [place] 885142-01-23 11:41:00 Test Item Value Reference Range Interpretation Comments Segs (test code = Segs) 78.0 45.0-75.0 [place] 885142-01-23 11:41:00 Test Item Value Reference Range Interpretation Comments Bands (test code = 15.0 See_Comment [Automat ed message] The Bands) system which ge nerated this result transmit carrie reference range : <=11.0. The reference r moon was not used to interpr et this result as michelet l/abnormal. [facility]andTaotbxzBOJKQDRUSQ1461-43-55 11:41:00 Test Item Value Reference Range Interpretation Comments Lymphocytes (test code = Lymphocytes) 3.0 20.0-40.0 [place] 885142-01-23 11:41:00 Test Item Value Reference Range Interpretation Comments Monocytes (test code = Monocytes) 4.0 2.0-12.0 [place] 885142-01-23 11:41:00 Test Item Value Reference Range Interpretation Comments Atypical Lymphs (test code = Atypical 0.0 Lymphs) [place] 885142-01-23 11:41:00 Test Item Value Reference Range Interpretation Comments NRBC (test code = NRBC) 1 [place] 885142-01-23 11:41:00 Test Item Value Reference Range Interpretation Comments RBC Morph (test code = Normal (11/27/21 5:41 RBC Morph) AM) [facility]QohgvxiGBYEBZJUJR3075-33-65 11:41:00 Test Item Value Reference Range Interpretation Comments Plt Morph (test code = Normal (11/27/21 5:41 Plt Morph) AM) [facility]andHqeqbncJBFYKLPYUO6961-31-77 11:41:00 Test Item Value Reference Range Interpretation Comments Tot Cell Ct (test code = Tot Cell Ct) 100 1 [facility]andFndgciqJCZNUADDVB4809-03-15 11:41:00 Test Item Value Reference Range Interpretation Comments WBC (test code = WBC) 33.0 3.7-10.4 [facility]andQbiwrpdPMFPOZVWPB6392-20-87 11:41:00 Test Item Value Reference Range Interpretation Comments RBC (test code = RBC) 3.09 4.20-5.40 [place] 885142-01-23 11:41:00 Test Item Value Reference Range Interpretation Comments Hgb (test code = Hgb) 9.9 12.0-16.0 [place] 885142-01-23 11:41:00 Test Item Value Reference Range Interpretation Comments Hct (test code = Hct) 28.8 36.0-48.0 [place] 885142-01-23 11:41:00 Test Item Value Reference Range Interpretation Comments MCV (test code = MCV) 93.3 80.0-98.0 [facility] HospitalWmdxpycIMTMVFXYDG1337-79-42 11:41:00 Test Item Value Reference Range Interpretation Comments MCH (test code = MCH) 32.1 pg 27.0-31.0 [facility] HospitalUbayoivLMBDFFXPGO8035-30-48 11:41:00 Test Item Value Reference Range Interpretation Comments MCHC (test code = MCHC) 34.4 32.0-36.0 [facility] HospitalKrhskiqZRISZGBMYP0648-30-32 11:41:00 Test Item Value Reference Range Interpretation Comments RDW (test code = RDW) 19.9 11.5-14.5 [facility] HospitalIjyhvlnKKVZQPFDYR0003-55-49 11:41:00 Test Item Value Reference Range Interpretation Comments Platelet (test code = Platelet) 162 133-450 [facility] HospitalOxmyxjhMTBTFTQKPM0199-38-64 11:41:00 Test Item Value Reference Range Interpretation Comments MPV (test code = MPV) 7.0 7.4-10.4 [facility] [id number] 06:58:00 Test Item Value Reference Range Interpretation Comments U Sodium (test code = U Sodium) 86 [facility] EYLV2217-69-31 06:58:00 Test Item Value Reference Range Interpretation Comments U Potassium (test code = U Potassium) 9.2 [facility] UBKD6612-31-23 06:58:00 Test Item Value Reference Range Interpretation Comments U Chloride (test code = U Chloride) 76 [facility]Culture: [id number] 06:58:00 Test Item Value Reference Range Interpretation Comments Culture: Urine (test code = No Growth Culture: Urine) [facility] HospitalCHEM [id number] 21:16:00 Test Item Value Reference Range Interpretation Comments Lactic Acid Lvl (test code = Lactic 1.3 0.5-2.2 Acid Lvl) [facility] HospitalMstgsghKRCXRLLVQZ6930-60-38 21:16:00 Test Item Value Reference Range Interpretation Comments Coronavirus (COVID-19) Not Detected (11/26/21 SEAMUS (test code = 3:16 PM) Coronavirus (COVID-19) SEAMUS) [facility] AND [id number] 21:16:00 Test Item Value Reference Range Interpretation Comments UA Color (test code = Red *ABN*(11/26/21 3:16 UA Color) PM) [facility] AND [id number] 21:16:00 Test Item Value Reference Range Interpretation Comments UA Turbidity (test code Marked *ABN*(11/26/21 = UA Turbidity) 3:16 PM) [facility] AND [id number] 21:16:00 Test Item Value Reference Range Interpretation Comments UA WBC (test code 11-20 /HPF See_Comment [Automate d message] The = UA WBC) system which ge nerated this result tra nsmitted reference range : <=5. The reference range was not used to interpr et this result as normal/abnormal . [facility] AND [id number] 21:16:00 Test Item Value Reference Range Interpretation Comments UA Spec Grav (test code = UA Spec 1.012 1 Grav) [facility] AND [id number] 21:16:00 Test Item Value Reference Range Interpretation Comments UA pH (test code = UA pH) 7.0 1 5.0-8.0 [facility] AND [id number] 21:16:00 Test Item Value Reference Range Interpretation Comments UA Protein (test code = UA >=300 mg/dL Protein) [facility] AND [id number] 21:16:00 Test Item Value Reference Range Interpretation Comments UA Ketones (test code = UA Trace mg/dL Ketones) [facility] AND [id number] 21:16:00 Test Item Value Reference Range Interpretation Comments UA Bili (test code = Negative *NA*(11/26/21 UA Bili) 3:16 PM) [facility] AND [id number] 21:16:00 Test Item Value Reference Range Interpretation Comments UA Blood (test code = Large *ABN*(11/26/21 UA Blood) 3:16 PM) [facility] AND [id number] 21:16:00 Test Item Value Reference Range Interpretation Comments UA Nitrite (test code Negative (11/26/21 3:16 = UA Nitrite) PM) [facility] AND [id number] 21:16:00 Test Item Value Reference Range Interpretation Comments UA Leuk Est (test Negative (11/26/21 3:16 code = UA Leuk Est) PM) [facility] AND [id number] 21:16:00 Test Item Value Reference Range Interpretation Comments UA Sq Epi (test code = UA Sq Occasional /LPF Epi) [facility] AND [id number] 21:16:00 Test Item Value Reference Range Interpretation Comments UA RBC (test code = 22 See_Comment [Automa carrie message] The UA RBC) system which ge nerated this result transmit carrie reference range : <=2. The reference range was not used to interpr et this result as michelet l/abnormal. [facility] AND [id number] 21:16:00 Test Item Value Reference Range Interpretation Comments UA Bacteria (test code = UA Moderate /HPF Bacteria) [facility] AND [id number] 21:16:00 Test Item Value Reference Range Interpretation Comments UA Mucus (test code = UA Mucus) Few /LPF [facility] AND [id number] 21:16:00 Test Item Value Reference Range Interpretation Comments UA Gate Yeast (test code = UA Gate Few /HPF Yeast) [facility] AND [id number] 21:16:00 Test Item Value Reference Range Interpretation Comments UA Glucose (test code = UA Glucose) 50mg/dl [facility] AND [id number] 21:16:00 Test Item Value Reference Range Interpretation Comments UA Urobilinogen (test code = UA <=1.0 mg/dL 0.1-1.0 Urobilinogen) [facility]2022-01-22 18:52:00 Test Item Value Reference Range Interpretation Comments Glucose Lvl (test code = Glucose Lvl) 101 70-[address] [facility]2022-01-22 18:52:00 Test Item Value Reference Range Interpretation Comments BUN (test code = BUN) 46 7-22 [place] [id number] 18:52:00 Test Item Value Reference Range Interpretation Comments Creatinine Lvl (test code = Creatinine 10.60 0.50-1.40 Lvl) [facility]2022-01-22 18:52:00 Test Item Value Reference Range Interpretation Comments Sodium Lvl (test code = Sodium Lvl) 129 135-[address] [facility]2022-01-22 18:52:00 Test Item Value Reference Range Interpretation Comments Potassium Lvl (test code = Potassium 3.9 3.5-5.1 Lvl) [place] [id number] 18:52:00 Test Item Value Reference Range Interpretation Comments Chloride Lvl (test code = Chloride Lvl) 94 95-109 [place] 072972-01-22 18:52:00 Test Item Value Reference Range Interpretation Comments CO2 (test code = CO2) 24 24-32 [place] 072972-01-22 18:52:00 Test Item Value Reference Range Interpretation Comments Calcium Lvl (test code = Calcium Lvl) 7.1 8.5-10.5 [place] 072972-01-22 18:52:00 Test Item Value Reference Range Interpretation Comments Albumin Lvl (test code = Albumin Lvl) 2.7 3.5-5.0 [place] 072972-01-22 18:52:00 Test Item Value Reference Range Interpretation Comments ALT (test code = ALT) 13 See_Comment [Auto mated message] The system which ge nerated this result transmit carrie reference range : <=65. The reference range was not used to interpr et this result as michelet l/abnormal. [place] 072972-01-22 18:52:00 Test Item Value Reference Range Interpretation Comments AST (test code = AST) 30 See_Comment [Auto mated message] The system which ge nerated this result transmit carrie reference range : <=37. The reference range was not used to interpr et this result as michelet l/abnormal. [place] 072972-01-22 18:52:00 Test Item Value Reference Range Interpretation Comments AGAP (test code = AGAP) 14.9 10.0-20.0 [place] 072972-01-22 18:52:00 Test Item Value Reference Range Interpretation Comments B/C Ratio (test code = B/C Ratio) 4 1 6-25 [place] 072972-01-22 18:52:00 Test Item Value Reference Range Interpretation Comments eGFR (test code = eGFR) 3 [place] 072972-01-22 18:52:00 Test Item Value Reference Range Interpretation Comments Total Protein (test code = Total 6.2 6.4-8.4 Protein) [place] 072972-01-22 18:52:00 Test Item Value Reference Range Interpretation Comments Alk Phos (test code = Alk Phos) 154 39-136 [place] 072972-01-22 18:52:00 Test Item Value Reference Range Interpretation Comments Bili Total (test code = Bili Total) 0.7 0.2-1.3 [place] 072972-01-22 18:52:00 Test Item Value Reference Range Interpretation Comments Globulin (test code = Globulin) 3.5 2.7-4.2 [place] 072972-01-22 18:52:00 Test Item Value Reference Range Interpretation Comments A/G Ratio (test code = A/G Ratio) 0.8 1 0.7-1.6 [place] [address]-01-22 18:52:00 Test Item Value Reference Range Interpretation Comments Neutrophils # (test code = Neutrophils 36.9 1.5-8.1 #) [place] 885142-01-22 18:52:00 Test Item Value Reference Range Interpretation Comments Lymphocytes # (test code = Lymphocytes 3.0 1.0-5.5 #) [place] 885142-01-22 18:52:00 Test Item Value Reference Range Interpretation Comments Monocytes # (test code 1.3 See_Comment [Aut omated message] The = Monocytes #) system which generated this result tra nsmitted reference range : <=0.8. The reference r moon was not used to int erpret this result as normal/abnormal . [place] 885142-01-22 18:52:00 Test Item Value Reference Range Interpretation Comments Segs (test code = Segs) 49.0 45.0-75.0 [place] 885142-01-22 18:52:00 Test Item Value Reference Range Interpretation Comments Bands (test code = 38.0 See_Comment [Automat ed message] The Bands) system which ge nerated this result transmit carrie reference range : <=11.0. The reference r moon was not used to interpr et this result as michelet l/abnormal. [place] 885142-01-22 18:52:00 Test Item Value Reference Range Interpretation Comments Lymphocytes (test code = Lymphocytes) 7.0 20.0-40.0 [place] 885142-01-22 18:52:00 Test Item Value Reference Range Interpretation Comments Monocytes (test code = Monocytes) 3.0 2.0-12.0 [place] 885142-01-22 18:52:00 Test Item Value Reference Range Interpretation Comments Metamyelocytes (test code 1.0 See_Comment [ Automated message] = Metamyelocytes) The system which generated this result transmitted ref erence range: <=1.0. T he reference range was not used to int erpret this result as normal/abnormal . [place] 885142-01-22 18:52:00 Test Item Value Reference Range Interpretation Comments Myelocytes (test code = Myelocytes) 2.0 [place] [address]-01-22 18:52:00 Test Item Value Reference Range Interpretation Comments Atypical Lymphs (test code = Atypical 0.0 Lymphs) [place] 885142-01-22 18:52:00 Test Item Value Reference Range Interpretation Comments RBC Morph (test code = Normal (11/26/21 12:52 RBC Morph) PM) [place] 885142-01-22 18:52:00 Test Item Value Reference Range Interpretation Comments Plt Morph (test code = Normal (11/26/21 12:52 Plt Morph) PM) [place] 885142-01-22 18:52:00 Test Item Value Reference Range Interpretation Comments WBC (test code = WBC) 42.4 3.7-10.4 [place] [address]-01-22 18:52:00 Test Item Value Reference Range Interpretation Comments RBC (test code = RBC) 3.68 4.20-5.40 [place] 885142-01-22 18:52:00 Test Item Value Reference Range Interpretation Comments Hgb (test code = Hgb) 11.4 12.0-16.0 [place] [address]-01-22 18:52:00 Test Item Value Reference Range Interpretation Comments Hct (test code = Hct) 34.0 36.0-48.0 [place] [address]-01-22 18:52:00 Test Item Value Reference Range Interpretation Comments MCV (test code = MCV) 92.4 80.0-98.0 [place] [address]-01-22 18:52:00 Test Item Value Reference Range Interpretation Comments MCH (test code = MCH) 30.9 pg 27.0-31.0 [place] 885142-01-22 18:52:00 Test Item Value Reference Range Interpretation Comments MCHC (test code = MCHC) 33.5 32.0-36.0 [place] 885142-01-22 18:52:00 Test Item Value Reference Range Interpretation Comments RDW (test code = RDW) 20.0 11.5-14.5 [place] 885142-01-22 18:52:00 Test Item Value Reference Range Interpretation Comments Platelet (test code = Platelet) 224 133-450 [place] 885142-01-22 18:52:00 Test Item Value Reference Range Interpretation Comments MPV (test code = MPV) 8.0 7.4-10.4 [place] 885141-12-02 15:29:00 Test Item Value Reference Range Interpretation Comments PT (test code = PT) 14.7 s 12.0-14.7 [place] 885141-12-02 15:29:00 Test Item Value Reference Range Interpretation Comments INR (test code = INR) 1.17 1 0.85-1.17 [id number] 15:29:00 Test Item Value Reference Range Interpretation Comments PTT (test code = PTT) 30.7 s 22.9-35.8 [place] 885141-11-30 18:54:00 Test Item Value Reference Range Interpretation Comments Segs (test code = Segs) 67.8 45.0-75.0 [facility]naviaqMUWUSCPHHO1507-06-94 18:54:00 Test Item Value Reference Range Interpretation Comments Lymphocytes (test code = Lymphocytes) 22.9 20.0-40.0 [place] 885141-11-30 18:54:00 Test Item Value Reference Range Interpretation Comments Monocytes (test code = Monocytes) 8.0 2.0-12.0 [facility]DprsbamLNSCZDKDWW5084-08-44 18:54:00 Test Item Value Reference Range Interpretation Comments Eosinophils (test code = 0.8 See_Comment [A utomated message] The Eosinophils) system which ge nerated this result tra nsmitted reference range : <=4.0. The reference r moon was not used to int erpret this result as normal/abnormal . [facility]ghvdlyEATXUVOUTA9999-50-83 18:54:00 Test Item Value Reference Range Interpretation Comments Basophils (test code = 0.5 See_Comment [Aut omated message] The Basophils) system which ge nerated this result tra nsmitted reference range : <=1.0. The reference r moon was not used to int erpret this result as normal/abnormal . [place] 885141-11-30 18:54:00 Test Item Value Reference Range Interpretation Comments Neutrophils # (test code = Neutrophils 3.2 1.5-8.1 #) [id number] 18:54:00 Test Item Value Reference Range Interpretation Comments Lymphocytes # (test code = Lymphocytes 1.1 1.0-5.5 #) [place] 885141-11-30 18:54:00 Test Item Value Reference Range Interpretation Comments Monocytes # (test code 0.4 See_Comment [Aut omated message] The = Monocytes #) system which generated this result tra nsmitted reference range : <=0.8. The reference r moon was not used to int erpret this result as normal/abnormal . [place] 885141-11-30 18:54:00 Test Item Value Reference Range Interpretation Comments WBC (test code = WBC) 4.7 3.7-10.4 [place] 885141-11-30 18:54:00 Test Item Value Reference Range Interpretation Comments RBC (test code = RBC) 3.54 4.20-5.40 [place] 885141-11-30 18:54:00 Test Item Value Reference Range Interpretation Comments Hgb (test code = Hgb) 12.5 12.0-16.0 [place] 885141-11-30 18:54:00 Test Item Value Reference Range Interpretation Comments Hct (test code = Hct) 36.1 36.0-48.0 [place] [address]-11-30 18:54:00 Test Item Value Reference Range Interpretation Comments MCV (test code = MCV) 101.8 80.0-98.0 [place] [address]-11-30 18:54:00 Test Item Value Reference Range Interpretation Comments MCH (test code = MCH) 35.1 pg 27.0-31.0 [place] 885141-11-30 18:54:00 Test Item Value Reference Range Interpretation Comments MCHC (test code = MCHC) 34.5 32.0-36.0 [facility]AjkimqaHGTVFHJQZD3326-59-36 18:54:00 Test Item Value Reference Range Interpretation Comments RDW (test code = RDW) 19.3 11.5-14.5 [place] 885141-11-30 18:54:00 Test Item Value Reference Range Interpretation Comments Platelet (test code = Platelet) 249 133-450 [facility]andSwjdzydQRWNTMYLEE4420-68-84 18:54:00 Test Item Value Reference Range Interpretation Comments MPV (test code = MPV) 6.8 7.4-10.4 [facility]andFvubuhnQAOHFOKIEZ6830-33-48 18:54:00 Test Item Value Reference Range Interpretation Comments PT (test code = PT) 40.9 s 12.0-14.7 [facility]andOczbfijRTQTFCJNHC5487-63-92 18:54:00 Test Item Value Reference Range Interpretation Comments INR (test code = INR) 4.55 1 0.85-1.17 [facility]andUtzyecxNGUVJQWOFL5087-73-70 18:54:00 Test Item Value Reference Range Interpretation Comments PTT (test code = PTT) 42.8 s 22.9-35.8 [facility]:54:00 Test Item Value Reference Range Interpretation Comments Coronavirus (COVID-19) Not Detected [facility]AMUS (test code = *NA*(10/04/21 12:54 Coronavirus (COVID-19) PM) [facility]) [facility] [id number] 09:45:00 Test Item Value Reference Range Interpretation Comments Phosphorus (test code = Phosphorus) 3.3 2.5-4.5 [facility] [id number] 09:45:00 Test Item Value Reference Range Interpretation Comments Magnesium Lvl (test code = Magnesium 2.1 1.8-2.4 Lvl) [facility] [id number] 09:45:00 Test Item Value Reference Range Interpretation Comments Calcium Lvl (test code = Calcium Lvl) 8.9 8.5-10.5 [facility] [id number] 09:45:00 Test Item Value Reference Range Interpretation Comments Potassium Lvl (test code = Potassium 4.6 3.5-5.1 Lvl) [facility]2017-03-16 09:45:00 Test Item Value Reference Range Interpretation Comments Chloride Lvl (test code = Chloride Lvl) 99 95-[address] [facility]2017-03-16 09:45:00 Test Item Value Reference Range Interpretation Comments Sodium Lvl (test code = Sodium Lvl) 139 135-[address] [facility]2017-03-16 09:45:00 Test Item Value Reference Range Interpretation Comments eGFR (test code = eGFR) [address] [facility]2017-03-16 09:45:00 Test Item Value Reference Range Interpretation Comments Creatinine Lvl (test code = Creatinine 0.41 0.50-1.40 Lvl) [facility]2017-03-16 09:45:00 Test Item Value Reference Range Interpretation Comments CO2 (test code = CO2) 31 -[address] [facility]2017-03-16 09:45:00 Test Item Value Reference Range Interpretation Comments Glucose Lvl (test code = Glucose Lvl) 88 70-[address] [facility]2017-03-16 09:45:00 Test Item Value Reference Range Interpretation Comments BUN (test code = BUN) 6 7-[address] [facility]2017-03-16 09:45:00 Test Item Value Reference Range Interpretation Comments AGAP (test code = AGAP) 13.6 10.0-20.[address] [facility]2017-03-15 11:05:00 Test Item Value Reference Range Interpretation Comments Phosphorus (test code = Phosphorus) 2.2 2.5-4.[address] [facility]2017-03-15 11:05:00 Test Item Value Reference Range Interpretation Comments Magnesium Lvl (test code = Magnesium 1.9 1.8-2.4 Lvl) [facility]fq[facility]grpRJYYZQDGJOFR5022-10-04 11:05:00 Test Item Value Reference Range Interpretation Comments AGAP (test code = AGAP) 13.2 10.0-20.0 [facility] SystemHoywyixUQBEDUESFZCE8019-01-41 11:05:00 Test Item Value Reference Range Interpretation Comments CO2 (test code = CO2) 30 24-32 [facility] SystemNxakmngTZRZVYPVMHRA9154-38-92 11:05:00 Test Item Value Reference Range Interpretation Comments Potassium Lvl (test code = Potassium 4.2 3.5-5.1 Lvl) [facility] SystemObwondmPSYXWFROKVCI2723-33-20 11:05:00 Test Item Value Reference Range Interpretation Comments Chloride Lvl (test code = Chloride Lvl) 104 95-109 [facility] SystemIvonuphGMIGWIBGDESP4321-81-30 11:05:00 Test Item Value Reference Range Interpretation Comments Calcium Lvl (test code = Calcium Lvl) 8.5 8.5-10.5 [facility] SystemGjznimbJGIAIEEXNWRK2243-81-05 11:05:00 Test Item Value Reference Range Interpretation Comments Glucose Lvl (test code = Glucose Lvl) 109 70-99 [facility] SystemLuulrxqWOBUQFATUVZX6479-87-04 11:05:00 Test Item Value Reference Range Interpretation Comments Sodium Lvl (test code = Sodium Lvl) 143 135-145 [facility] SystemIpxdwnbGVFEXWCIVJVZ1152-96-92 11:05:00 Test Item Value Reference Range Interpretation Comments eGFR (test code = eGFR) 105 [facility] SystemDfddgklNFEMKDBHCXAP5820-81-11 11:05:00 Test Item Value Reference Range Interpretation Comments BUN (test code = BUN) 6 7-22 [facility] SystemHcntzjpTNSAKIXCFUMQ4989-62-43 11:05:00 Test Item Value Reference Range Interpretation Comments Creatinine Lvl (test code = Creatinine 0.47 0.50-1.40 Lvl) [facility]2017-03-14 08:51:00 Test Item Value Reference Range Interpretation Comments Phosphorus (test code = Phosphorus) 2.8 2.5-4.[address] [facility]2017-03-14 08:51:00 Test Item Value Reference Range Interpretation Comments Magnesium Lvl (test code = Magnesium 2.0 1.8-2.4 Lvl) [facility]2017-03-14 08:51:00 Test Item Value Reference Range Interpretation Comments eGFR (test code = eGFR) [address] [facility]2017-03-14 08:51:00 Test Item Value Reference Range Interpretation Comments Creatinine Lvl (test code = Creatinine 0.36 0.50-1.40 Lvl) [facility]2017-03-14 08:51:00 Test Item Value Reference Range Interpretation Comments AGAP (test code = AGAP) 16.4 10.0-20.[address] [facility]2017-03-14 08:51:00 Test Item Value Reference Range Interpretation Comments Calcium Lvl (test code = Calcium Lvl) 8.1 8.5-10.[address] [facility]2017-03-14 08:51:00 Test Item Value Reference Range Interpretation Comments CO2 (test code = CO2) 25 24-[address] [facility]2017-03-14 08:51:00 Test Item Value Reference Range Interpretation Comments Chloride Lvl (test code = Chloride Lvl) 106 95-[address] [facility]2017-03-14 08:51:00 Test Item Value Reference Range Interpretation Comments Potassium Lvl (test code = Potassium 3.4 3.5-5.1 Lvl) [facility]2017-03-14 08:51:00 Test Item Value Reference Range Interpretation Comments BUN (test code = BUN) 3 7-[address] [facility]2017-03-14 08:51:00 Test Item Value Reference Range Interpretation Comments Sodium Lvl (test code = Sodium Lvl) 144 135-[address] [facility]2017-03-14 08:51:00 Test Item Value Reference Range Interpretation Comments Glucose Lvl (test code = Glucose Lvl) 119 70-[address] [facility]2017-03-12 13:07:00 Test Item Value Reference Range Interpretation Comments ALT (test code = ALT) 7 See_Comment [Auto mated message] The system which ge nerated this result transmit carrie reference range : <=65. The reference range was not used to interpr et this result as michelet l/abnormal. [facility]2017-03-12 13:07:00 Test Item Value Reference Range Interpretation Comments AST (test code = AST) 24 See_Comment [Auto mated message] The system which ge nerated this result transmit carrie reference range : <=37. The reference range was not used to interpr et this result as michelet l/abnormal. [place] [id number] 13:07:00 Test Item Value Reference Range Interpretation Comments Bili Direct (test code 0.2 See_Comment [Aut omated message] The = Bili Direct) system which generated this result tra nsmitted reference range : <=0.3. The reference r moon was not used to int erpret this result as michelet l/abnormal. [facility]2017-03-12 13:07:00 Test Item Value Reference Range Interpretation Comments Albumin Lvl (test code = Albumin Lvl) 2.1 3.5-5.[address] [facility]2017-03-12 13:07:00 Test Item Value Reference Range Interpretation Comments A/G Ratio (test code = A/G Ratio) 0.8 0.7-1.[address] [facility]2017-03-12 13:07:00 Test Item Value Reference Range Interpretation Comments Alk Phos (test code = Alk Phos) 424 39-[address] [facility]2017-03-12 13:07:00 Test Item Value Reference Range Interpretation Comments Bili Indirect (test 0.2 See_Comment [Automa carrie message] The code = Bili Indirect) system which generated this result tra nsmitted reference range : <=1.0. The reference r moon was not used to int erpret this result as normal/abnormal . [facility]2017-03-12 13:07:00 Test Item Value Reference Range Interpretation Comments Globulin (test code = Globulin) 2.8 2.7-4.[address] [facility]2017-03-12 13:07:00 Test Item Value Reference Range Interpretation Comments Total Protein (test code = Total 4.9 6.4-8.4 Protein) [facility]2017-03-12 13:07:00 Test Item Value Reference Range Interpretation Comments Bili Total (test code = Bili Total) 0.4 0.2-1.[address] [facility]2017-03-11 09:45:00 Test Item Value Reference Range Interpretation Comments Bili Direct (test code 0.3 See_Comment [Aut omated message] The = Bili Direct) system which generated this result tra nsmitted reference range : <=0.3. The reference r moon was not used to int erpret this result as michelet l/abnormal. [facility]2017-03-11 09:45:00 Test Item Value Reference Range Interpretation Comments AST (test code = AST) 38 See_Comment [Auto mated message] The system which ge nerated this result transmit carrie reference range : <=37. The reference range was not used to interpr et this result as michelet l/abnormal. [facility]2017-03-11 09:45:00 Test Item Value Reference Range Interpretation Comments ALT (test code = ALT) 9 See_Comment [Auto mated message] The system which ge nerated this result transmit carrie reference range : <=65. The reference range was not used to interpr et this result as michelet l/abnormal. [facility]2017-03-11 09:45:00 Test Item Value Reference Range Interpretation Comments Bili Total (test code = Bili Total) 0.9 0.2-1.[address] [facility]2017-03-11 09:45:00 Test Item Value Reference Range Interpretation Comments Bili Indirect (test 0.6 See_Comment [Automa carrie message] The code = Bili Indirect) system which generated this result tra nsmitted reference range : <=1.0. The reference r moon was not used to int erpret this result as normal/abnormal . [facility]2017-03-11 09:45:00 Test Item Value Reference Range Interpretation Comments A/G Ratio (test code = A/G Ratio) 0.9 0.7-1.[address] [facility]2017-03-11 09:45:00 Test Item Value Reference Range Interpretation Comments Alk Phos (test code = Alk Phos) 610 39-[address] [facility]2017-03-11 09:45:00 Test Item Value Reference Range Interpretation Comments Globulin (test code = Globulin) 3.1 2.7-4.2 [place] [id number] 09:45:00 Test Item Value Reference Range Interpretation Comments Total Protein (test code = Total 5.8 6.4-8.4 Protein) [facility]2017-03-11 09:45:00 Test Item Value Reference Range Interpretation Comments Albumin Lvl (test code = Albumin Lvl) 2.7 3.5-5.[address] [facility]2017-03-10 09:25:00 Test Item Value Reference Range Interpretation Comments Total Protein (test code = Total 5.4 6.4-8.4 Protein) [facility]2017-03-10 09:25:00 Test Item Value Reference Range Interpretation Comments Globulin (test code = Globulin) 2.9 2.7-4.[address] [facility]2017-03-10 09:25:00 Test Item Value Reference Range Interpretation Comments Bili Total (test code = Bili Total) 0.8 0.2-1.[address] [facility]2017-03-10 09:25:00 Test Item Value Reference Range Interpretation Comments Alk Phos (test code = Alk Phos) 667 39-[address] [facility]2017-03-10 09:25:00 Test Item Value Reference Range Interpretation Comments A/G Ratio (test code = A/G Ratio) 0.9 0.7-1.[address] [facility]2017-03-10 09:25:00 Test Item Value Reference Range Interpretation Comments Bili Indirect (test 0.6 See_Comment [Automa carrie message] The code = Bili Indirect) system which generated this result tra nsmitted reference range : <=1.0. The reference r moon was not used to int erpret this result as normal/abnormal . [facility]2017-03-10 09:25:00 Test Item Value Reference Range Interpretation Comments AST (test code = AST) 54 See_Comment [Auto mated message] The system which ge nerated this result transmit carrie reference range : <=37. The reference range was not used to interpr et this result as michelet l/abnormal. [facility]2017-03-10 09:25:00 Test Item Value Reference Range Interpretation Comments ALT (test code = ALT) 10 See_Comment [Auto mated message] The system which ge nerated this result transmit carrie reference range : <=65. The reference range was not used to interpr et this result as michelet l/abnormal. [facility]2017-03-10 09:25:00 Test Item Value Reference Range Interpretation Comments Albumin Lvl (test code = Albumin Lvl) 2.5 3.5-5.[address] [facility]2017-03-10 09:25:00 Test Item Value Reference Range Interpretation Comments Bili Direct (test code 0.2 See_Comment [Aut omated message] The = Bili Direct) system which generated this result tra nsmitted reference range : <=0.3. The reference r moon was not used to int erpret this result as michelet l/abnormal. [facility]:25:00 Test Item Value Reference Range Interpretation Comments Prealbumin (test code = Prealbumin) 8.7 18.0-45.[address] [facility]2017-03-09 16:59:00 Test Item Value Reference Range Interpretation Comments Procalcitonin Lvl (test 2.57 See_Comment [Au tomated message] code = Procalcitonin Lvl) Th e system which generated this result transmitted ref erence range: <=0.10. The reference range was not used to interpr et this result as normal/abnormal . [facility]2017-03-09 11:37:00 Test Item Value Reference Range Interpretation Comments B/C Ratio (test code = B/C Ratio) 18 6-25 [facility] 11:37:00 Test Item Value Reference Range Interpretation Comments MCV (test code = MCV) 84.8 80.0-98.0 [facility]GysgtbjFKQZUICOVI4744-97-42 11:37:00 Test Item Value Reference Range Interpretation Comments MCH (test code = MCH) 27.9 pg 27.0-31.0 [facility]TxvhgqwCVMYYDXVDZ7589-68-84 11:37:00 Test Item Value Reference Range Interpretation Comments MCHC (test code = MCHC) 32.9 32.0-36.0 [facility]DcwvvnhAPXQFTCUUF7368-70-78 11:37:00 Test Item Value Reference Range Interpretation Comments RDW (test code = RDW) 13.5 11.5-14.5 [facility]XfbfbhrHQCQRXVBUF7394-21-05 11:37:00 Test Item Value Reference Range Interpretation Comments Platelet (test code = Platelet) 181 133-450 [facility]andZopgjtxPGXCKKKKJE9338-12-22 11:37:00 Test Item Value Reference Range Interpretation Comments MPV (test code = MPV) 7.3 7.4-10.4 [facility]andXoahxkbSGBDCDVCFT7524-79-17 11:37:00 Test Item Value Reference Range Interpretation Comments Hct (test code = Hct) 36.7 36.0-48.0 [facility]andDmupxzbHCOJTVVUTM8790-24-09 11:37:00 Test Item Value Reference Range Interpretation Comments Hgb (test code = Hgb) 12.1 12.0-16.0 [facility]andZtzjwclQDIFSDKDRY7730-36-33 11:37:00 Test Item Value Reference Range Interpretation Comments RBC (test code = RBC) 4.33 4.20-5.40 [facility]andQrolxhjJQRVCNBJJC6224-38-36 11:37:00 Test Item Value Reference Range Interpretation Comments WBC (test code = WBC) 5.9 3.7-10.4 [facility]andIkvmpzkGUCYQTVKMS2790-01-51 11:37:00 Test Item Value Reference Range Interpretation Comments Basophils (test code = 0.2 See_Comment [Aut omated message] The Basophils) system which ge nerated this result tra nsmitted reference range : <=1.0. The reference r moon was not used to int erpret this result as normal/abnormal . [facility]andOvnpzfiPKZZLSTCWH8172-59-61 11:37:00 Test Item Value Reference Range Interpretation Comments Segs-Bands # (test code = Segs-Bands #) 3.8 1.5-8.1 [facility]a[id number] 11:37:00 Test Item Value Reference Range Interpretation Comments Lymphocytes # (test code = Lymphocytes 1.3 1.0-5.5 #) [facility]andRrvjgzvPKZGEENEJI4893-24-81 11:37:00 Test Item Value Reference Range Interpretation Comments Monocytes # (test code 0.8 See_Comment [Aut omated message] The = Monocytes #) system which generated this result tra nsmitted reference range : <=0.8. The reference r moon was not used to int erpret this result as normal/abnormal . [facility]andGevhbflHKAOACCKHI5144-96-88 11:37:00 Test Item Value Reference Range Interpretation Comments Segs (test code = Segs) 63.6 45.0-75.0 [facility]andKrboxwrEAQRBTSJAE1404-91-60 11:37:00 Test Item Value Reference Range Interpretation Comments Lymphocytes (test code = Lymphocytes) 22.5 20.0-40.0 [facility]a[id number] 11:37:00 Test Item Value Reference Range Interpretation Comments Monocytes (test code = Monocytes) 13.2 2.0-12.0 [facility]andCatjqdhRKWUKQDAHV5098-12-52 11:37:00 Test Item Value Reference Range Interpretation Comments Eosinophils (test code = 0.5 See_Comment [A utomated message] The Eosinophils) system which ge nerated this result tra nsmitted reference range : <=4.0. The reference r moon was not used to int erpret this result as normal/abnormal . [facility] AND [id number] 22:46:00 Test Item Value Reference Range Interpretation Comments UA Mucus (test code = UA Mucus) Few /LPF [facility] [id number] 22:46:00 Test Item Value Reference Range Interpretation Comments UA Bacteria (test code = UA Few /HPF Bacteria) [facility] [id number] 22:46:00 Test Item Value Reference Range Interpretation Comments UA Hyal Cast (test 3 See_Comment [Automat ed message] The code = UA Hyal Cast) system which generated this result transmit carrie reference range : <=2. The reference range was not used to interpr et this result as michelet l/abnormal. [facility] AND [id number] 22:46:00 Test Item Value Reference Range Interpretation Comments UA Sq Epi (test code = UA Sq Occasional /LPF Epi) [facility] AND [id number] 22:46:00 Test Item Value Reference Range Interpretation Comments UA Leuk Est (test code Trace *ABN*(01/10/17 4:46 = UA Leuk Est) PM) [facility] AND [id number] 22:46:00 Test Item Value Reference Range Interpretation Comments UA WBC (test code = 9 See_Comment [Automa carrie message] The UA WBC) system which ge nerated this result transmit carrie reference range : <=5. The reference range was not used to interpr et this result as michelet l/abnormal. [facility] AND [id number] 22:46:00 Test Item Value Reference Range Interpretation Comments UA RBC (test code = 1 See_Comment [Automa carrie message] The UA RBC) system which ge nerated this result transmit carrie reference range : <=2. The reference range was not used to interpr et this result as michelet l/abnormal. [facility] AND [id number] 22:46:00 Test Item Value Reference Range Interpretation Comments UA Bili (test code = Negative *NA*(01/10/17 UA Bili) 4:46 PM) [facility] AND [id number] 22:46:00 Test Item Value Reference Range Interpretation Comments UA Blood (test code = Small *ABN*(01/10/17 UA Blood) 4:46 PM) [facility] AND [id number] 22:46:00 Test Item Value Reference Range Interpretation Comments UA Ketones (test code = UA Ketones) 80 mg/dL [facility] AND [id number] 22:46:00 Test Item Value Reference Range Interpretation Comments UA Nitrite (test code Negative (01/10/17 4:46 = UA Nitrite) PM) [facility] AND [id number] 22:46:00 Test Item Value Reference Range Interpretation Comments UA Urobilinogen (test code = UA <=1.0 mg/dL 0.1-1.0 Urobilinogen) [facility] AND [id number] 22:46:00 Test Item Value Reference Range Interpretation Comments UA Turbidity (test code = Clear (01/10/17 4:46 UA Turbidity) PM) [facility] AND [id number] 22:46:00 Test Item Value Reference Range Interpretation Comments UA Spec Grav (test code = UA Spec Grav) 1.011 [facility] AND [id number] 22:46:00 Test Item Value Reference Range Interpretation Comments UA Color (test code = Light Yellow UA Color) *NA*(01/10/17 4:46 PM) [facility] AND [id number] 22:46:00 Test Item Value Reference Range Interpretation Comments UA Glucose (test code = UA Negative mg/dL Glucose) [facility] AND [id number] 22:46:00 Test Item Value Reference Range Interpretation Comments UA pH (test code = UA pH) 5.0 5.0-8.0 [facility] AND [id number] 22:46:00 Test Item Value Reference Range Interpretation Comments UA Protein (test code = UA Negative mg/dL Protein) [facility] [id number] 19:00:00 Test Item Value Reference Range Interpretation Comments CK MB Index (test no gt See_Comment [Automate d message] The code = CK MB Index) system w [facility] generated this result transmit carrie reference range : <=2.5. The reference range was not used to interpr et this result as michelet l/abnormal. [facility] HospitalCARDIAC [id number] 19:00:00 Test Item Value Reference Range Interpretation Comments CK MB (test code = CK MB) no gt 0.5-3.6 [facility] HospitalCARHlongwane Capital [id number] 19:00:00 Test Item Value Reference Range Interpretation Comments Troponin-I (test code no gt See_Comment [Auto mated message] The = Troponin-I) system which g enerated this result transmit carrie reference range : <=0.40. The reference r moon was not used to interpr et this result as michelet l/abnormal. [facility] HospitalMpax [id number] 19:00:00 Test Item Value Reference Range Interpretation Comments Total CK (test code = Total CK) 53 12-191 [facility] [id number] 19:00:00 Test Item Value Reference Range Interpretation Comments B/C Ratio (test code = B/C Ratio) 24 6-25 [facility] HospitalAPSX [id number] 19:00:00 Test Item Value Reference Range Interpretation Comments Procalcitonin Lvl (test 7.23 See_Comment [Au tomated message] code = Procalcitonin Lvl) Th e system which generated this result transmitted ref erence range: <=0.10. The reference range was not used to interpr et this result as normal/abnormal . [facility] [id number] 19:00:00 Test Item Value Reference Range Interpretation Comments Lactic Acid Lvl (test code = Lactic 1.5 0.5-2.2 Acid Lvl) [facility] Hos[id number] 19:00:00 Test Item Value Reference Range Interpretation Comments Segs-Bands # (test code = Segs-Bands #) 4.8 1.5-8.1 [id number] 19:00:00 Test Item Value Reference Range Interpretation Comments Basophils (test code = 0.2 See_Comment [Aut omated message] The Basophils) system which ge nerated this result tra nsmitted reference range : <=1.0. The reference r moon was not used to int erpret this result as normal/abnormal . [facility] HospitalKkpwosuSCDPUSUPHT3427-05-57 19:00:00 Test Item Value Reference Range Interpretation Comments Lymphocytes # (test code = Lymphocytes 1.1 1.0-5.5 #) [id number] 19:00:00 Test Item Value Reference Range Interpretation Comments Monocytes # (test code 0.7 See_Comment [Aut omated message] The = Monocytes #) system which generated this result tra nsmitted reference range : <=0.8. The reference r moon was not used to int erpret this result as normal/abnormal . [id number] 19:00:00 Test Item Value Reference Range Interpretation Comments Monocytes (test code = Monocytes) 10.1 2.0-12.0 [id number] 19:00:00 Test Item Value Reference Range Interpretation Comments Eosinophils (test code = 0.2 See_Comment [A utomated message] The Eosinophils) system which ge nerated this result tra nsmitted reference range : <=4.0. The reference r moon was not used to int erpret this result as normal/abnormal . [id number] 19:00:00 Test Item Value Reference Range Interpretation Comments Lymphocytes (test code = Lymphocytes) 16.5 20.0-40.0 [id number] 19:00:00 Test Item Value Reference Range Interpretation Comments Segs (test code = Segs) 73.0 45.0-75.0 [facility]a[id number] 19:00:00 Test Item Value Reference Range Interpretation Comments Hgb (test code = Hgb) 14.3 12.0-16.0 [id number] 19:00:00 Test Item Value Reference Range Interpretation Comments MCV (test code = MCV) 83.3 80.0-98.0 [id number] 19:00:00 Test Item Value Reference Range Interpretation Comments Hct (test code = Hct) 43.1 36.0-48.0 [id number] 19:00:00 Test Item Value Reference Range Interpretation Comments WBC (test code = WBC) 6.5 3.7-10.4 [id number] 19:00:00 Test Item Value Reference Range Interpretation Comments RBC (test code = RBC) 5.17 4.20-5.40 [id number] 19:00:00 Test Item Value Reference Range Interpretation Comments MCHC (test code = MCHC) 33.3 32.0-36.0 [facility]a[id number] 19:00:00 Test Item Value Reference Range Interpretation Comments RDW (test code = RDW) 13.7 11.5-14.5 [id number] 19:00:00 Test Item Value Reference Range Interpretation Comments MCH (test code = MCH) 27.7 pg 27.0-31.0 [facility]a[id number] 19:00:00 Test Item Value Reference Range Interpretation Comments Platelet (test code = Platelet) 221 133-450 [id number] 19:00:00 Test Item Value Reference Range Interpretation Comments MPV (test code = MPV) 7.1 7.4-10.4 [facility]andUiqiukxTHTEEVJQED8154-13-57 19:00:00 Test Item Value Reference Range Interpretation Comments PT (test code = PT) 15.2 s 12.0-14.7 [facility]e[id number] 19:00:00 Test Item Value Reference Range Interpretation Comments INR (test code = INR) 1.18 0.85-1.17 [id number] 19:00:00 Test Item Value Reference Range Interpretation Comments PTT (test code = PTT) 28.5 s 22.9-35.8 [id number] 14:14:00 Test Item Value Reference Range Interpretation Comments INR (test code = INR) 1.07 0.85-1.17 [id number] 14:14:00 Test Item Value Reference Range Interpretation Comments PT (test code = PT) 14.2 s 12.0-14.7 [id number] 14:14:00 Test Item Value Reference Range Interpretation Comments PTT (test code = PTT) 26.9 s 22.9-35.8 [facility] Notes Date/Time Note Provider Source 2021-11-28 Clinical Indication: - FREDIS; [facility] 11:50:26-00:00 Comparison: No previous [facility] nuclear medicine studies available. Renal ultrasound dated 11/26/2021 TECHNIQUE: Renal scan is performed usin g 10.6 mCi of Tc 99m mag 3, which was administered intravenously. Renal angiographic imaging w as performed in the frontal plane immediately after radiotracer administration at 5 seconds/frame for 60 seconds. Static 5 minute, 10 minute, 15 minute and 20 minute frontal images were also obtained after radiotracer injection. FINDINGS: The radionuclide angiographic images show symmet eran nephrograms. The split renal blood flow/ function of the melyssa eys at 2 to 3 minutes is Left 45.9 %. Right 54.1 % There is no significant excr etion seen by both kidneys at 20 minutes on the static images. No Lasix was administered du ring the exam. Assessment for obstructive uropathy is limited. IMPRESSION: 1. Renal Lasix scan exam for renal function, as noted above. Split renal function of left 35.9% and right 54.1%. No significant excretion seen by both kidneys at 20 minutes on the static images. This ca n be seen with acute renal failure/acute tubular necrosis. SL: [id number] 2021-11-26 EXAM: [facility] [place] 16:52:00-00:00 Renal ultrasound. CLINICAL HX: - ARF. Age: 71 years. Gender: Female. TECHNIQUE: Grayscale and Doppler sonogram of the kidneys. Facility: [facility]. COMPARISON: CT abdomen and pelvis: January 17, 2017. FINDINGS: Right kidney: -- Length: 9.7 cm. -- Cortical thickness: 1.2 cm. -- Hydronephrosis: Pelviectasis. -- Echogenicity: Increased. -- Other: None. Left kidney: -- Length: 12 cm. -- Cortical thickness: 1.2 cm. -- Hydronephrosis: Negative. -- Echogenicity: Increased. -- Other: None. Urinary bladder: Not evaluated. Vascular: -- Aorta: Not evaluated. -- Common iliac artery origins: Not evaluated. -- IVC: Not evaluated. Other: None. IMPRESSION: 1. Right renal pelviectasis. 2. Mildly echogenic bilatera l kidneys. Correlate clinically for medical renal disease. 2021-11-26 EXAM: [facility] [place] 14:32:40-00:00 Chest x-ray, 1 view(s). CLINICAL HX: - dyspnea. Age: 71 years. Gender: Female. TECHNIQUE: As above. Facility: [facility]. COMPARISON: Chest x-ray: January 18, 2017. FINDINGS: Support apparatus: Right julio c st wall Port-A-Cath with catheter tip projecting over the expected location of the cavoatrial junction. Cardiac silhouette: Unremarkable. Mediastinum: -- Sarah: Unremarkable. -- Other: None. Lungs: -- Consolidation: Negative. -- Pleural effusion: Negative. -- Pneumothorax: Negative. -- Other: Negative. Bones: Unremarkable. Other: None. IMPRESSION: 1. No acute cardiopulmonary process. 2021-10-06 PROCEDURE: Ultrasound-guided biopsy [facility] [place] 13:22:07-00:00 Procedural Personnel Attending physician(s): Reji Portillo MD Pre-procedure diagnosis: BREAST CANCER WITH LIVE R MASS Post-procedure diagnosis: Same Indication: Histopathologic diagnosis Previous biopsy of same target (QCDR): No Additional clinical history: None Complications: No immediate complications. IMPRESSION: Ultrasound-guided biopsy of liver mass. Plan: Specimen(s) sent for evaluation. PROCEDURE SUMMARY: - Percutaneous ultrasound-guided coaxial core ne edle biopsy - Additional procedure(s): None PROCEDURE DETAILS: Pre-procedure Reference imaging for biopsy target: CT Abdomen pelvis dated 09/22/2021 Consent: Informed consent fo r the procedure including risks, benefits and alternatives was obtained and time-out was performed prior to the procedure. Preparation: The site was pr epared and draped using maximal sterile barrier technique including cutaneous antisepsis. Anesthesia/sedation Level of anesthesia/sedation: Moderate sedation (conscious sedation) Anesthesia/sedation administ ered by: Independent trained observer under attending supervision with continuous monitoring of the patient's level of consciousness and physiologic status Total intra-service sedation time (minutes): 30 Imaging prior to biopsy The patient was positioned s upine. Initial imaging was performed using ultrasound. Biopsy target: - Location: Segment 4 Other findings: Hepatic cysts Biopsy Local anesthesia was adminis tered. Under US guidance, the biopsy needle was advanced to the target and biopsy was performed. Coaxial needle: 17 gauge Core needle biopsy device: Biopince Core needle size: 18 gauge Number of core specimens: 5 Needle removal The biopsy needle was removed and a sterile dres sing was applied. Tract embolization: Gelfoam pledgets Imaging following biopsy Immediate post-biopsy imaging was performed usin g ultrasound. Post-biopsy imaging findings: No hematoma Additional Details Additional description of procedure: None Equipment details: None Specimens removed: Biopsy samples as detailed ab evy Estimated blood loss (mL): Less than 10 Standardized report: _[email or web address] Attestation Signer name: Reji Portillo MD I attest that I was present for the entire procedure. I reviewed the stored images and agree with the report as written. 2021-10-06 PROCEDURE: Venous port placement [facility] [place] 13:22:07-00:00 Procedural Personnel Attending physician(s): Reji Portillo MD Pre-procedure diagnosis: Breast cancer Post-procedure diagnosis: Same Indication: Administration of chemotherapy Additional clinical history: None Complications: No immediate complications. IMPRESSION: Insertion of right-sided pow er-injectable single-lumen tunneled chest port, with catheter tip in the expected location of the right atrium. Plan: The port may be used immediately. PROCEDURE SUMMARY: - Venous access with ultrasound guidance - Tunneled port insertion under fluoroscopic erlinda dance - Additional procedure(s): None Pre-procedure Consent: Informed consent fo r the procedure including risks, benefits and alternatives was obtained and time-out was performed prior to the procedure. Preparation (MIPS): The site was prepared and draped using all elements of maximal sterile barrier technique including sterile gloves, sterile gown, cap, mask, large sterile sheet, sterile ultrasound pr obe cover, hand hygiene and cutaneous antisepsis with 2% chlorhexidine. Medical reason for site preparation exception (M IPS): Not applicable Anesthesia/sedation Level of anesthesia/sedation: Moderate sedation (conscious sedation) Anesthesia/sedation administ ered by: Independent trained observer under attending supervision with continuous monitoring of the patient's level of consciousness and physiologic status Total intra-service sedation time (minutes): 30 Access Local anesthesia was adminis tered. The vessel was sonographically evaluated and determined to be patent. Real time ultrasound was used to visualize needle entry into the vessel and a permanent image was not stored. Vein accessed: Internal jugular vein Access technique: Micropuncture set with 21 gaug e needle Port placement A single incision was made a t the upper chest, a pocket was created, and the catheter was tunneled subcutaneously to the venous access site and trimmed to appropriate length. The port was inserted into the pocket and the catheter was advanced via a peel-away sheath into the vein under fluoroscopic guidance. The port was not sutured into the pocket. Catheter tip location was fluoroscopically verified and a permanent image was stored. Port placed: Bard Catheter size (Tongan): 8 fr. Catheter flush: Normal saline Closure The access site and incision were closed and sterile dressing(s) were applied. Access site closure technique: Tissue adhesive Incision closure technique: Absorbable suture an d tissue adhesive Patient discharged from procedure suite with dev ice accessed: No Radiation Dose Fluoroscopy time (minutes): 0.3 Reference air kerma (mGy): 2.5 Kerma area product (uGy-m2): 68.58 Additional Details Additional description of procedure: None Equipment details: None Specimens removed: None Estimated blood loss (mL): Less than 10 Standardized report: [email or web address] Attestation Signer name: Reji Portillo MD I attest that I was present for the entire procedure. I reviewed the stored images and agree with the report as written. 2018-10-05 Brain w/wo contrast MRI 10/05/2018 11:27 AM [facility] 11:27:00-00:00 Clinical Indication: C50.512 Malignant neoplasm of lower-outer quadrant of left female breast; R41.82 Altered mental status, unspecified - C50.512 Malignant neoplasm of lower-outer quadrant of left fema le breast; R41.82 Altered mental status, unspeci fied; Comparison: None TECHNIQUE: Multiplanar MRI o f the brain is performed without and with contrast. 9 mL of intravenous gadolinium was given. FINDINGS: BRAIN: No restricted diffusi on is identified. Age-appropriate mild chronic microvascular ischemia is present. Moderate generalized cerebral atrophy. There is no extra-axial fluid collection or intrapare nchymal hemorrhage. No abnormal intracranial enh ancement. CEREBELLOPONTINE REGIONS, SE LLA, AND SKULL: The cerebellopontine angles appear unremarkable. Calvarial hypointense T1-weighted signal with mild patchy enhancement is present. Significant clivus and uppe r cervical spine hypointense signal is present. The pituitary gland appears unremarkable. VENTRICLES: The ventricles a nd sulci are normal in size and configuration for age. VISUALIZED VESSELS: Major intracranial flow void s are preserved. ORBITS, VISUALIZED PARANASAL SINUSES/MASTOIDS/CERVICAL SPINE: Significant right maxillary and left sphenoid sinusitis. Mild bilateral mastoid effusions. No orbital pathology is seen. IMPRESSION: 1. No intracranial hemorrhag e, mass, or acute infarct. No intracranial metastasis. 2. Calvarial and upper cervical spine osseous me tastases suspected. 3. Moderate cerebral atrophy. 4. Right maxillary and left sphenoid sinusitis. 2017-01-18 Clinical history: Fracture - evaluate for rib fr actures. [facility] [place] 15:46:29-00:00 : 1950. Technique: 3 views of the le ft ribs and chest. Comparison chest x-ray 01/10/2017. Findings: No evidence for rib fracture. No destructive lesion. Lungs are clear. No pneumothorax. Blunted right costophrenic angle. Left axillary chest wall clips. Impression: 1. No fracture. Small right effusion suggested. 2017-01-17 Clinical history: Pain in li mb - eval for pathologic fracture, lytic lesions. [facility] [place] 17:12:05-00:00 Sex: Female. : 1950. Technique: 2 views of the left leg. Findings: Subcutaneous edema. Normal tibia and fibula. The knee joint is normal. The ankle joint is normal. There is no fracture. There is no destructive lesion. Impression: 1. No acute skeletal abnormality. 2017-01-17 Clinical history: Pain in li mb - eval for lytic lesion, pathologic fx. [facility] [place] 17:12:05-00:00 Sex: Female. : 1950. Technique: 3 views of the left knee. Findings: Subcutaneous edema . The knee joint is normal. The patellofemoral joint is normal. There is trace suprapatellar bursal articular effusion. There is no fracture or dislocation. No destructive lesion. Impression: 1. No acute skeletal abnormality. 2017-01-17 Clinical history: Pain in li mb - eval for lytic lesion, pathologic fx. [facility] [place] 17:12:05-00:00 : 1950. Technique: 3 views of the left ankle. Findings: There is moderate soft tissue swelling. No evidence for acute fracture. Normal articulations. Normal ankle mortise. No destructive lesion. Impression: 1. No acute skeletal findings. 2017-01-17 CLINICAL HISTORY: Abdominal pain, acute [facility] [place] 16:37:20-00:00 AGE: 66 years GENDER: Female TECHNIQUE: CT of the abdomen was performed without contrast. Multiplanar reconstructions were reviewed. CREATININE: n/a DLP: 290 mGy-cm COMPARISON: CT abdomen pelvis 01/11/2017. Abdomi nal radiograph 01/16/2017. FINDINGS: There is small bilateral pleural effusions. Simple cysts are seen in the right and left hepatic lobes. The liver is normal in size and morphology. The spleen, pancreas and adrenal glands are unremarkable. The gallbladder is present a nd distended. There is a large lamellated, partially calcified gallstone measuring 2.8 cm in greatest dimension. There is a subcentimeter pro teinaceous/hemorrhagic cyst in the midpole of the right kidney, unchanged. No nephrolithiasis or hydronephrosis. There is no significant retroperitoneal adenopat hy. There is no evidence of pneu moperitoneum. A gastrostomy tube is seen with its tip in the gastric body. Visualized loops of large and small bowel are un remarkable. Multiple sclerotic osseous m etastatic lesions are again seen in the lumbar spine with compression deformity of the right lateral aspect of the L3 vertebral body. IMPRESSION: Gastrostomy tube with its tip in the gastric bod y. No pneumoperitoneum. Distended gallbladder with a large laminated 2.8 cm gallstone. If there is clinical concern for acute cholecystitis, consider further evaluation with HIDA scan. Osseous metastatic disease i n the thoracic and lumbar spine again noted and unchanged. Small bilateral pleural effusions. 2017-01-17 EXAMINATION: Venous Doppler of the left lower ex tremity [facility] [place] 16:25:12-00:00 HISTORY: Pain, Limb - eval f or DVT in patient with met breast ca; left lower extremity pain FINDINGS: There are no enrico risons. Ultrasound examination was performed from the groin to the ankle using real time, duplex, and color Doppler technique. Both augmentation and compression maneuvers were performed. The common femoral, femoral, popliteal, and posterior tibial veins are normally compressible and augment normally. IMPRESSION: 1. No evidence of deep venous thrombosis of the left lower extremity. 2017-01-16 CLINICAL HISTORY: Constipation [facility] 09:38:00-00:00 AGE: 66 years GENDER: Female TECHNIQUE: Abdominal radiographs, 1 views. COMPARISON: CT abdomen pelvis 12/14/2016 FINDINGS: No dilated loops of large or small bowel are seen. Gas-distended, dilated loops of distal colon are present. Interval placement of gastro stomy tube with the balloon projecting over the gastric body. No pneumoperitoneum on this supine film. Calcified uterine fibroids. IMPRESSION: Gastrostomy tube with its tip projecting over th e left upper quadrant. Nonobstructive bowel gas pattern. 2017-01-13 PROCEDURE PERFORMED: [facility] [place] 13:26:01-00:00 1. Percutaneous insertion of gastrostomy tube 2. Insertion of nasogastric tube 3. Fluoroscopic guidance CLINICAL INFORMATION: Advanc ed metastatic disease, inadequate oral intake. Gastric tube requested for supplemental nutrition. CONSENT: Prior to the proced ure, the risks, benefits and alternatives were discussed with the patient's family and written informed consent was obtained. SEDATION: Please see separately dictated anesthe siology report. PROCEDURE: The patient was placed supin e on the angiography table and the upper abdomen was prepped and draped in the usual sterile fashion. Maximal sterile barrier precautions were used. Under fluoroscopic guidance a 5 Tongan catheter and guidewire were inserted via the left nares to the level of the stomach. Ultrasound was used to delin eate the left and inferior margins of the liver.1 mg of glucagon was given intravenously and stomach was inflated by injecting air through the catheter positioned in the stomach. The stomach was then punctur ed with a 18-gauge needle under fluoroscopy guidance a T-fastener was deployed. This was repeated. With these 2 T-fasteners in place another puncture was made between the gas tric stay sutures and a guid ewire was passed into the stomach. This puncture site was serially dilated, to 20 Tongan. An 18 Tongan gastrostomy tube was advanced over the guidewire. Contrast was injected throug h the gastrostomy tube under fluoroscopy guidance which confirmed its intragastric position. The patient tolerated the pr ocedure well and no immediate complications were seen. IMPRESSION: Placement of an 18 F gastrostomy tube under fluoroscopy and ultrasound guidance. TOTAL FLUOROSCOPY TIME: 4.2 MINUTES TOTAL DAP: 10077 mGycm2 2017-01-12 Clinical history: Weakness. [facility] 19:09:21-00:00 Sex: Female. : 1950. Technique: Sagittal and axia l sequences through the lumbar spine with T1 and T2 weighting on the high field magnet before and after intravenous injection of 10 mL of gadolinium. Comparison computed yao graphy scan abdomen and pelvis 01/11/2017 and finesse ne scan 06/21/2015. L5-S1: The disc is hydrated. There is no disc he rniation. L4-5: The disc is desiccated. There is no disc h erniation. L3-4: The disc is desiccated. Mild facet hypertr ophy. L2-3: The disc is desiccated. Mild facet hypertr ophy. L1-2: The disc is hydrated. There is no disc her niation. Intradural: No mass or fluid collection. There is no abnormal intraspinal enhancement. There is no enhancing intraspinal mass. There is no evidence for clumping or enhancement of the nerve roots. The conus is at T12-L1. Skeletal structures: There i s extensive skeletal metastatic disease with enhancing neoplasm throughout the vertebral elements both anterior and posterior. Pathologic compression fracture is seen L3 with out appreciable retropulsion . Also enhancing metastatic infiltration throughout the sacrum as well as the included right ilium. Musculature and soft tissues : There are small kidney cysts. There is no paraspinous mass evident.. Impression: 1. Extensive skeletal metastasis. Pathologic fra cture at L3. 2. No disc herniation. 3. No abnormal intradural or intraspinal enhanci ng mass. 2017-01-12 EXAMINATION: Bilateral femora 2 views each [facility] [place] 11:30:00-00:00 HISTORY: Bilateral thigh pain; osseous metastati c disease TECHNIQUE: Portable frontal and lateral views of each femur are performed and compared to 06/25/[address] dated 01/11/2017. FINDINGS: On the left, there are large foci of ossification adjacent to the intertrochanteric proximal left femur without substantial interval change likely representing foci of heterotopic ossification. There coulter s been interval increase in sclerosis within the left ischial bone consistent with metastatic disease. Patchy foci of sclerosis are also noted within the distal third of the left femoral shaft consisten t with additional foci of bl astic metastatic disease. There is no acute fracture. The femoral head is well-seated within the acetabulum. On the right, there are scle rotic foci faintly visualized along the posteromedial right iliac bone adjacent to the right sacroiliac joint and along the superomedial aspect of the right superior pubic ra mus/medial aspect of the rig ht acetabulum consistent with foci of metastatic disease. There is no acute fracture. The femoral head is well-seated within the acetabulum. IMPRESSION: 1. Multiple sclerotic foci n oted within the visualized portions of the pelvis and left femur as described in detail above consistent with osseous metastatic disease. Correlation with recent bone scintigraphy may be useful. 2. No acute fracture of either femur. 3. Large foci of ossificatio n adjacent to the intertrochanteric proximal left femur, without interval change, likely representing foci of heterotopic ossification. 2017-01-11 CT ABDOMEN WITHOUT IV CONTRAST [facility] 16:16:22-00:00 CT PELVIS WITHOUT IV CONTRAST CLINICAL HISTORY: Abdominal distention. COMPARISON STUDY: CT abdomen June 22, 2015 out side films. TECHNIQUE: Sequential axial images were obtained with a multi-detector helical CT without administration of intravenous iodinated contrast material. Oral contrast was not given.The reported DLP in mGy*cm is 351 . The lack of contrast limits detailed evaluation of the abdominal organs. FINDINGS: The visualized lung bases are clear. The liver demonstrates prese nce of 2 low-attenuation lesions in the left lobe, most consistent with hepatic cysts and are unchanged since prior study. The gallbladder is quite distended and demonstrates presence of a 3 x 2.2 cm ga llstone. Higher density material noted in the fundus of the gallbladder likely represents presence of inspissated sludge. The non-contrast enhanced im ages of the liver, spleen, pancreas and adrenals are unremarkable. The kidneys are normal in appearance. There are no renal calculi. No evidence of ureteral calculi are seen. The stomach is unremarkable. The loops of small bowel and loops of colon are unremarkable. The appendix is unremarkable . Presence of retroverted uterus with multiple calcified uterine fibroids are noted The bladder is unremarkable. There is no pelvic or abdominal lymphadenopathy. No ascites. No free air. The inguinal regions are unremarkable. The visualized bones are unr emarkable. Sclerotic appearance of the left initial tuberosity is noted. Presence of left peritrochanteric and posterior to the proximal femur, soft tissue ossifications and calcifications are noted. Si milar findings were seen on the prior study. The sclerotic changes in the left ischial tuberosity represents an interval change. Similar changes are also seen in the posterio r ilium. Possibility of scle rotic metastatic disease should be considered in differential diagnosis. Additional lesions are noted in the T12 and L3 vertebral bodies. IMPRESSION: Distended gallbladder with a single large gallstone as well as presence of inspissated sludge like material in the obstructed portion of the fundus of the gallbladder. Several skeletal metastases osteob lastic lesion suggestive of chronic metastatic disease. Calcified uterine fibroids. Table low-attenuation hepatic lesions, likely cysts. 2017-01-10 Clinical history: Altered level of consciousness . [facility] [place] 13:54:32-00:00 : 1950. Technique: Portable AP chest x-ray. Comparison: None. Heart size: Normal. Lungs: No acute consolidation. Pleura: No pleural effusion. No pneumothorax. Mediastinum and sarah: Unremarkable. Musculoskeletal: Left axillary chest wall clips. . Support tubings: None. Impression: 1. No active disease in the chest. 2015-07-09 PROCEDURE: Fluoroscopically guided L3 mass biops y [facility] [place] 11:26:33-00:00 INDICATION FOR PROCEDURE: L3 mass MEDICATIONS: IV Fentanyl and Versed per the nurs ing order sheet. TECHNIQUE: The risks, benefits and alte rnatives of the procedure were discussed in detail with the patient. Emphasis was placed on risk of bleeding, infection, cord compression, nerve compression/radiculopathy, or persistent pain. Signed inf ormed consent was obtained. The patient was placed in a prone position on the fluoroscopic table. The back was prepped and draped with sterile technique. The skin was infiltrated with 1% lidocaine local anesthesia. Using real-time fluoroscopic guidance, one trocar needles were placed into the right posterior aspect of the L3 vertebral body through a transpedicular approach. A mallet was used to assist in the place ment of the larger needles. Using a bone biopsy device bone biopsy sample was taken under fluoroscopic guidance. At the end of the procedure and the needles were removed and pressure was held until hemo stasis was achieved. The sit e was dressed with sterile technique. No complications during the procedure. FINDINGS: The initial mowing machine operator anterior a nd lateral fluoroscopic images show right L3 vertebral body destruction. IMPRESSION: Successful fluoroscopically guided L3 mass biops y. 2015-06-28 Exam: Radiographic examination of the AP Pelvis in one view: [facility] 13:15:24-00:00 History: 174.9 . Comparison Study: Left femur Findings: There is no eviden ce of fracture, dislocation or pelvic ring disruption.. The bones are normally mineralized. The visualized joint spaces are within normal limits. No evidence of soft tissue a bnormalities are seen in the pelvis. There is no evidence of osteolytic or osteoblastic changes . A calcified fibroid is noted in the pelvis. Soft tissue florid calcifications and ossifications are note d surrounding the trochanteric region of the lef t femur . . Impression: No evidence of fracture. Het erotopic large soft tissue ossifications and calcifications. . 2015-06-25 EXAM: BILATERAL FEMUR 2 VIEWS [facility] 10:37:01-00:00 DATE: Jun 25, 2015 10:37:00 AM INDICATION: 174.9 Malignant Neoplasm of Breast ( Female), Unspecified COMPARISON: Bone scan 06/21/15. TECHNIQUE: Two views of the bilateral femurs wer e performed. FINDINGS: There is heterotopic bone fo rmation surrounding the greater trochanter of the left femur. There is cortical thickening and increased sclerosis of the left mid to distal femoral shaft. No evidence of fra cture. Sclerosis is also noted of the left infer ior pubic ramus. The right femur is unremarka ble with mild degenerative changes of the right hip joint. No fracture, dislocation or other acute bony abn ormality is identified. Contrast present in the sigm oid with more dense, inspissated contrast versus calcifications in the pelvis. IMPRESSION: Left femoral shaft and left inferior pubic ramus metastases without evidence of fracture. Heterotopic bone formation surrounding the left proximal femur. 2015-06-21 HISTORY: Breast cancer. [facility] 11:30:00-00:00 Whole-body bone scan. Imaging correlation: No recent. Intravenous administration of 25 mCi technetium 99m MDP. Delayed whole body scintigraphic images were obt ained. FINDINGS: Many abnormal foci of abnormal uptake within the axial and appendicular skeleton, consistent with bony metastatic disease. Lesions include 2 lesions wi thin the skull, 2 lesions in the mid cervical spine, T6 vertebral lesion, manubrium, right seventh posterior rib. Activity is also noted withi n the left scapula near the inferior glenoid margin. Abnormal activity in the right iliac bone adjacent to the sacroiliac joint, and within the left ischium. Abnormal uptake within the mid and distal left f emoral shaft. There is bilateral renal excretion of radiotrace r. IMPRESSION: Extensive multif ocal pathologic uptake within the spine, ribs, manubrium, left femur, skull consistent with bony metastasis. Would consider correlation w ith plain film radiographs of the left femur and pelvis to further evaluate bony architecture at risk for pathologic fracture. SL:13
[2023-06-26 18:10] LABS: Absolute Lymphocytes (CBC) 1.1 K/uL (0.7-4.9); Hematocrit 31.4 % (36.0-45.0); Lymphocytes % 13.5 % (15.3-44.8); MCV 89.3 fL (80-100); MPV 7.9 fL (7.6-11.3); Platelets 116 thou/uL (152-406); RBC Red Blood Cell Count 3.52 M/uL (3.86-4.86)
[2023-06-26 18:18] LABS: Potassium 3.3 mEq/L (3.5-5.1)
--- NOTE | 2023-06-26 19:14 | EDPHYS ---
Physician Documentation [facility] Name: Rosario Ulrich Age: 72 yrs Sex: Female : 1950 Arrival Date: 06/26/2023 Time: 16:57 Bed 19 Private MD: ED Physician Michael Lugo HPI: 06/26 23:16 This 72 yrs old Female presents to ER via Wheelchair with complaints of Abnormal Lab kb Results. 23:16 reports pt's oncologist called him today and told him to bring her to the ER kb for low calcium level on blood work that was done yesterday. Denies any new symptoms.. Onset: The symptoms/episode began/occurred today. Severity of symptoms: At their worst the symptoms were mild in the emergency department the symptoms are unchanged. The patient has not experienced similar symptoms in the past. The patient has been recently seen by a physician:. 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 - Social history:: Smoking status: Patient denies any tobacco usage or history of. ROS: 23:16 Constitutional: Negative for fever, chills, and weight loss. kb 23:16 All other systems are negative. Exam: 23:16 Constitutional: This is a well developed, well nourished patient who is awake, alert, kb and in no acute distress. Head/Face: Normocephalic, atraumatic. ENT: Moist Mucous membranes Respiratory: Respirations even and unlabored. No increased work of breathing. Vital Signs: 17:09 BP 125 / 89; Pulse 74; Resp 16 S; Temp 98.5(TE); Pulse Ox 97% on R/A; Weight 42.18 kg aa5 (R); Height 5 ft. 4 in. (R); 19:38 BP 119 / 84; Pulse 70; Resp 16 S; Pulse Ox 98% on R/A; lg3 20:32 BP 126 / 88; Pulse 73; Resp 17 S; Pulse Ox 97% on R/A; lg3 17:09 Body Mass Index 15.96 (42.18 kg, 162.56 cm) aa5 MDM: 17:07 Patient medically screened. kb 23:19 Differential Diagnosis dehydration, electrolyte imbalance. Data reviewed: vital signs, kb nurses notes. Management of patient was discussed with the following: Dr Lugo, who recommended follow up. Pt has follow up labs scheduled for Sunday and oncologist visit on Sunday. Historians other than the Patient: Spouse/Significant Other: . Counseling: I had a detailed discussion with the patient and/or guardian regarding the historical points, exam findings, and any diagnostic results supporting the discharge/admit diagnosis, lab results, the need for outpatient follow up, a family practitioner, oncologist, to return to the emergency department if symptoms worsen or persist or if there are any questions or concerns that arise at home. 06/26 17:15 Order name: CBC with Diff; Complete Time: 18:12 kb 06/26 17:15 Order name: Basic Metabolic Panel; Complete Time: 18:30 kb 06/26 17:15 Order name: IV Start; Complete Time: 18:03 kb Administered Medications: 19:24 Drug: NS 0.9% IV 1000 ml Route: IV; Rate: 1000 ml; Site: left upper arm; lg3 20:32 Follow up: Response: No adverse reaction; IV Status: Completed infusion; IV Intake: lg3 1000ml Disposition Summary: 06/26/23 19:14 Discharge Ordered Location: Home kb Condition: Stable kb Diagnosis - Hypercalcemia kb Followup: kb - With: Emergency Department - When: As needed - Reason: Worsening of condition Followup: kb - With: Private Physician - When: 2 - 3 days - Reason: Recheck today's complaints, Continuance of care, Re-evaluation by your physician Discharge Instructions: - Discharge Summary Sheet kb - Hypercalcemia kb Forms: - Medication Reconciliation Form kb - Thank You Letter kb - Antibiotic Education kb - Prescription Opioid Use kb - Patient Portal Instructions kb - Leadership Thank You Letter kb Signatures: Dispatcher [employer] Shelbie Owens FNP-C FNP-Annabella Mcqueen, RN RN aa5 Jaqueline Quevedo RN RN lg3
--- NOTE | 2023-06-26 19:14 | ER ---
Nurse's Notes [facility] Name: Rosario Ulrich Age: 72 yrs Sex: Female : 1950 Arrival Date: 06/26/2023 Time: 16:57 Bed 19 Private MD: Diagnosis: Hypercalcemia Presentation: 06/26 17:09 Chief complaint: Pt's states "her doctor called and said her calcium was really aa5 low". Onset of symptoms was June 26, 2023. 17:09 Method Of Arrival: Wheelchair aa5 17:09 Coronavirus screen: At this time, the client does not indicate any symptoms associated aa5 with coronavirus-19. Ebola Screen: Patient denies travel to an Ebola-affected area in the 21 days before illness onset. Risk Assessment: Do you want to hurt yourself or someone else? Unable to obtain. 17:09 Initial Sepsis Screen: Does the patient meet any 2 criteria? No. Patient's initial aa5 sepsis screen is negative. Does the patient have a suspected source of infection? No. Patient's initial sepsis screen is negative. 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 - Social history:: Smoking status: Patient denies any tobacco usage or history of. Screenin:01 [facility] ED Fall Risk Assessment (Adult) Score/Fall Risk Level 0 - 2 = Low Risk ll1 Oriented to surroundings, Maintained a safe environment, Hourly rounding (assess needs \\T\\ fall precautionary measures) done. Abuse screen: Denies threats or abuse. Denies injuries from another. Nutritional screening: Emaciated. Tuberculosis screening: No symptoms or risk factors identified. Assessment: 17:55 General: Appears in no apparent distress. uncomfortable, emaciated, Behavior is calm, ll1 cooperative, appropriate for age. Pain: Unable to use pain scale. Dementia. Neuro: Level of Consciousness is awake, alert, obeys commands, Oriented to person. Cardiovascular: Patient's skin is warm and dry. Respiratory: Airway is patent Respiratory effort is even, unlabored. 19:38 General: Appears in no apparent distress. comfortable, Behavior is calm, cooperative. lg3 General: Appears slender, emaciated. Pain: Denies pain. Neuro: Level of Consciousness is awake, obeys commands, confused, Oriented to person. Cardiovascular: No deficits noted. Capillary refill < 3 seconds Clubbing of nail beds is absent JVD is absent Patient's skin is warm and dry. Respiratory: No deficits noted. Airway is patent Respiratory effort is even, unlabored, Respiratory pattern is regular, symmetrical. GI: No deficits noted. No signs and/or symptoms were reported involving the gastrointestinal system. Abdomen is flat, non-distended. : No deficits noted. No signs and/or symptoms were reported regarding the genitourinary system. EENT: No deficits noted. No signs and/or symptoms were reported regarding the EENT system. Derm: No signs and/or symptoms reported regarding the dermatologic system. Skin is intact, is fragile, is thin, Skin is dry, Skin is pale, Skin temperature is warm. Musculoskeletal: Circulation, motion, and sensation intact. Range of motion: intact in all extremities. 19:38 General: PT to DC post fluid administration. lg3 20:32 Reassessment: Patient appears in no apparent distress at this time. No changes from lg3 previously documented assessment. Patient and/or family updated on plan of care and expected duration. Pain level reassessed. Vital Signs: 17:09 BP 125 / 89; Pulse 74; Resp 16 S; Temp 98.5(TE); Pulse Ox 97% on R/A; Weight 42.18 kg aa5 (R); Height 5 ft. 4 in. (R); 19:38 BP 119 / 84; Pulse 70; Resp 16 S; Pulse Ox 98% on R/A; lg3 20:32 BP 126 / 88; Pulse 73; Resp 17 S; Pulse Ox 97% on R/A; lg3 17:09 Body Mass Index 15.96 (42.18 kg, 162.56 cm) aa5 ED Course: 16:59 Patient arrived in ED. im 17:07 Shelbie Jackson FNP-C is PHCP. kb 17:07 Michael Lugo DO is Attending Physician. kb 17:09 Arm band placed on. aa5 17:17 Triage completed. aa5 17:40 Ana Maria Emmanuel, RN is Primary Nurse. ll1 17:55 Provided Education on: fall precautions, call light. ll1 17:55 Patient has correct armband on for positive identification. Bed in low position. Call ll1 light in reach. Side rails up X 1. Adult w/ patient. 17:55 Inserted saline lock: 22 gauge in left upper arm, using aseptic technique. Blood ll1 collected. 19:38 Client placed on continuous cardiac and pulse oximetry monitoring. NIBP monitoring lg3 applied. Door closed. Noise minimized. Warm blanket given. Family accompanied patient. 19:38 Patient maintains SpO2 saturation greater than 95% on room air. lg3 20:33 No provider procedures requiring assistance completed. IV discontinued, intact, lg3 bleeding controlled, No redness/swelling at site. Pressure dressing applied. Administered Medications: 19:24 Drug: NS 0.9% IV 1000 ml Route: IV; Rate: 1000 ml; Site: left upper arm; lg3 20:32 Follow up: Response: No adverse reaction; IV Status: Completed infusion; IV Intake: lg3 1000ml Medication: 19:38 VIS not applicable for this client. lg3 Intake: 20:32 IV: 1000ml; Total: 1000ml. lg3 Outcome: 19:14 Discharge ordered by . kb 20:33 Discharged to home via wheelchair, with significant other. lg3 20:33 Condition: stable 20:33 Discharge instructions given to significant other, Instructed on discharge instructions, follow up and referral plans. Demonstrated understanding of instructions, follow-up care. 20:33 Patient left the ED. lg3 Signatures: Shelbie Jackson, SILO WORKER-C SILO WORKER-CkAnnabella Plunkett, RN RN aa5 Jaqueline Quevedo RN RN lg3 Ana Maria Emmanuel, RN RN 1 Melody Faye
[2023-06-26] MEDS ORDERED: NA CHLORIDE 0.9% 1,000 ML ONE (19:29)
[2023-06-26 20:52] VITALS: TEMP 98.5; O2SAT 97
[2023-06-26 20:53] VITALS: BP 126/88
== END 2023-06-26 20:33 | disposition home or self-care (01) ==
LOC: ER 16:57
DX: E83.52 Hypercalcemia (principal); F03.90 Unspecified dementia, unspecified severity, without behavioral disturbance, psychotic disturbance, mood disturbance, and anxiety; Z85.3 Personal history of malignant neoplasm of breast; Z79.01 Long term (current) use of anticoagulants; Z90.13 Acquired absence of bilateral breasts and nipples
CPT/HCPCS: 85025; 80048; 36415; 96360; 99285; J7030